=== PATIENT | female | born 1975 | race Caucasian/White ===

== ENCOUNTER 2020-03-06 16:46 | Inpatient (IN) | payer OTHER, SELFPAY ==
[2020-03-06] VITALS (9 sets, daily range): BP systolic 98–128; BP diastolic 60–91; PULSE 118–149; RESP 13–26; TEMP 36.3–37.6; O2SAT 94–100; BMI 36.6; BMI 78.2
--- NOTE | ~2020-03-06 | US_ITS ---
EXAMINATION: US retroperitoneal comp DATE: 03/07/2020 16:15 INDICATION: Gross hematuria TECHNIQUE: Multiple ultrasound grayscale images of the kidneys were obtained. COMPARISON: CT dated 03/06/2020 FINDINGS: The right kidney measures 12.2 x 5.0 x 4.7 cm. The left kidney measures 12.6 x 6.2 x 5.9 cm. The kidn eys demonstrate normal echogenicity. There are a pair of 5 mm shadowing stones at the upper and lower poles of the right kidney. No stones identified at the left kidney. Linear echogenic internal ureter al stent is visualized in the bladder and in the left renal pelvis. There is no hydronephrosis in eit her kidney. No stones identified. The bladder is normal. IMPRESSION: 1. Resolution of prior left hydronephrosis post left internal ureteral stent placement. 2. A couple nonobstructing 5 mm right renal stones. Reviewed, dictated and finalized at location B. IMPRESSION: 1. Resolution of prior left hydronephrosis post left internal ureteral stent p lacement. 2. A couple nonobstructing 5 mm right renal stones.
--- NOTE | ~2020-03-06 | CT_ITS ---
EXAMINATION: CT abdomen pelvis w con DATE: 03/06/2020 18:48 INDICATION: Left lower quadrant abdominal pain TECHNIQUE: Computed tomography (CT) of the abdomen and pelvis was performed with 100 cc Omnipaque 350 intravenous contrast. Automated exposure control and iterative reconstruction technique were employe d. Exam dose: 1050.78 mGy-cm total exam DLP. COMPARISON: 03/31/2019 CTA chest abdomen FINDINGS: There is mild by basilar lower lobe dependent atelectasis. There is old pulmonary granuloma tous disease. Normal heart size. No pericardial or pleural effusion. Small sliding hiatal hernia. There is a 2 cm hypoattenuating mass of the right hepatic lobe. There is air within the gallbladder lumen and extrahepatic bile ducts. No bile duct dilatation. No pa ncreatic duct dilatation. Normal splenic size. No pancreatic mass lesion or calcification. Normal morphology of the adrenal glands. There are multiple right renal cysts, measuring 9 mm or smaller. Indeterminate 9 mm hypoattenuating lesion of the lateral mid left kidney. 5 mm, 5 mm and 4.7 mm right renal nonobstructing calculi. 3.2 mm nonobstructing upper pole left renal calculus. 7.8 x 4.2 x 9.5 mm obstructing left ureteropelvic junction calculus with moderate left hydronephrosis . The urinary bladder, uterus and adnexal areas are unremarkable. No bowel obstruction, bowel wall thickening, pneumatosis or intraperitoneal free air. Normal caliber of the abdominal aorta. No intraperitoneal or retroperitoneal or pelvic mass lesion or adenopathy or ascites. Small fat-containing umbilical hernia. No suspicious osteolytic or osteoblastic lesions. IMPRESSION: 7.8 x 4.2 x 9.5 mm obstructing left ureteral interval junction calculus with moderate le ft hydronephrosis Bilateral nonobstructive nephrolithiasis Multiple subcentimeter right renal cysts Indeterminate hypoattenuating 9 mm lesion of lateral mid left kidney. Indeterminate 2 cm lesion of right hepatic lobe. Consider MRI for further evaluation of the right hep atic and left renal masses. Small sliding hiatal hernia Pneumobilia Reviewed, dictated and finalized at Location [facility]. Reviewed, dictated and finalized at location A. IMPRESSION: 7.8 x 4.2 x 9.5 mm obstructing left ureteral interval junction dionisio culus with moderate left hydronephrosis Bilateral nonobstructive nephrolithiasis Multiple subcentimeter right renal cysts Indeterminate hypoattenuating 9 mm lesion of lateral mid left kidney. Indeterminate 2 cm lesion of right hepatic lobe. Consider MRI for further evalu ation of the right hepatic and left renal masses. Small sliding hiatal hernia Pneumobilia
--- NOTE | ~2020-03-06 | MR_ITS ---
EXAMINATION: MR abdomen wo/w con INDICATION: Right hepatic and left renal masses TECHNIQUE: Coronal SSFSE ARC, WATER:coronal LAVA-FLEX, Coronal 2D FIESTA FatSat, Axial SSFSE BH ARC, Axial 3D DualEcho BH, Axial SSFSE-IR, Axial DWI b=500, Axial 2D FIESTA FatSat, pre and dynamic postco ntrast Axial LAVA ARC, postcontrast Coronal In and Opposed phase LAVA FLEX COMPARISON: 03/31/2019 CONTRAST: Multihance, 20 cc FINDINGS: There is a stable 2.1 cm hemangioma of the right hepatic lobe corresponding to the lesion q uestioned on recent CT examination. No suspicious liver lesion is identified. The gallbladder, spleen , gallbladder, and adrenal glands are normal. A stable 4 mm cyst is present in the tail of the pancre as. There are cysts of the kidneys, one of which measures 9 mm on the left and corresponds to the les ion in question on the comparison CT. There are no pathologically enlarged abdominal lymph nodes. No dilated loops of bowel are evident. There is mild atelectasis of the lung bases. The heart size is no rmal. IMPRESSION: 1. Liver hemangioma and left kidney cysts corresponding to the lesions in question on recent CT. Reviewed, dictated and finalized at location A. IMPRESSION: 1. Liver hemangioma and left kidney cysts corresponding to the lesions in quest ion on recent CT.
--- NOTE | ~2020-03-06 | XR_ITS ---
XR retrograde pyelo w/stent LT DATE: 03/06/2020 21:42 INDICATION: Kidney stone. Left stent placement. TECHNIQUE: 9 spot C-arm images of the abdomen and pelvic areas 32.2 seconds fluoroscopy time [id number] [id number] COMPARISON: 03/06/2020 CT abdomen pelvis FINDINGS: The left ureter is opacified with contrast material. A guidewire and especially catheter pl aced on a faintly calcified stone of the left ureteropelvic junction. Left internal urinary stent is placed. Recommend reference to urologist procedure report. IMPRESSION: Left internal urinary stent placement for left ureteropelvic junction calcified stone Reviewed, dictated and finalized at Location [facility]. Reviewed, dictated and finalized at location A. IMPRESSION: Left internal urinary stent placement for left ureteropelvic juncti on calcified stone
--- NOTE | 2020-03-06 17:07 | ED.ABDPAIN ---
HPI - Abdominal Pain General Chief Complaint: Abdominal Pain Stated Complaint: pancreatitis Time Seen by Provider: 03/06/20 16:55 History of Present Illness HPI narrative: Severe abdominal pain for the past few days. Worsening in severity. Located in the Left mid abdomen. Radiates throughout the abdomen. Asscoiated with nausea. She has a h/o pacreatitis and believes that is what she has now. No fever, chills, diarrhea, dysuria. Related Data Allergies Allergy/AdvReac Type Severity Reaction Status Date / Time sumatriptan Allergy Mild Agitated Verified 03/06/20 17:02 SUMATRIPTAN SUCCINATE Allergy Severe DIFFICULTY Uncoded 03/06/20 17:02 BREATHING Review of Systems Review of Systems: All systems reviewed & are unremarkable except as noted in HPI and below Constitutional: Constitutional: Denies fever(s) and Denies weakness Cardiovascular: Cardiovascular: Denies chest pain Respiratory: Respiratory: Denies dyspnea Gastrointestinal: Gastrointestinal: Reports abdominal pain and Reports nausea Genitourinary: Genitourinary: Denies hematuria and Denies dysuria Musculoskeletal: Musculoskeletal: Denies back pain [facility] Past Medical History Medical History Migraine Pancreatitis Surgical History Surgical History History of pancreatic surgery Family History Family History Father COPD (chronic obstructive pulmonary disease) Asthma Cerebrovascular accident Diabetes mellitus Hypertension Malignant neoplasm of prostate Mother MVP (mitral valve prolapse) Social History Social History Smoking status: Never smoker Second hand tobacco smoke exposure: No Alcohol intake: current Substance use: never Substance use type: does not use Gender identity (if verbalized by the patient): Female Spiritual care concerns: No Exam Const: General: alert and ill appearing acutely Orientation/consciousness: patient oriented x3 Other: Mild distress HENMT: Head: normal to inspection Neck: Neck: normal visual inspection and no lymphadenopathy Chest: Chest palpation & inspection: no tenderness Resp: Effort & Inspection: normal respiratory effort Auscultation: clear to auscultation bilaterally, no rales, no rhonchi and no wheezes Cardio: Jugular venous distension: no JVD Rate: tachycardic Rhythm: regular rhythm Heart sounds: no murmurs GI: Inspection: non-distended GI Palp: Yes Soft to palpation, Yes Tenderness to palpation present (GI) (generalized), No Guarding due to palpation present (GI) and No Rebound tenderness present Skin: General skin exam: normal color Neuro: General: patient oriented x3, moves all extremities and no focal motor deficits Speech: normal speech Extrem: General: no edema Psych: Appearance: well kempt Affect: normal affect Course Vital Signs Vital signs: Vital Signs Temperature 36.9 C 03/06/20 16:58 Pulse Rate 149 H 03/06/20 16:58 Respiratory Rate 23 H 03/06/20 16:58 Blood Pressure 112/66 03/06/20 16:58 Pulse Oximetry 98 03/06/20 16:58 Temperature 36.6 C 03/10/20 10:00 Pulse Rate 90 03/10/20 10:00 Respiratory Rate 16 03/10/20 10:00 Blood Pressure 128/85 03/10/20 10:00 Pulse Oximetry 99 03/10/20 10:00 MDM - Abdominal Pain Differential Diagnosis Differential diagnosis: Likely constipation, diverticulitis, pancreatitis, small bowel obstruction and other (sepsis) Medical Records Attestation: I reviewed the patient's medical records. Lab Data Attestation: I reviewed the patient's lab results. Result diagrams: 03/08/20 05:25 03/08/20 05:25 Labs: Lab Results 03/06/20 03/06/20 03/06/20 Range/Units 17:05 17:05 17:30 WBC 10.6 H (4.5-10.0) K/mm3 RBC 4.60 (4.2-5.4) M/mm3
[2020-03-06 17:38] LABS: Basophils Percent Auto 0.3 % (0.2-1.2); Eosinophils Percent Auto 0.1 % (0-4.4); Hematocrit 40.2 % (37.0-47.0); Hemoglobin 13.3 g/dL (12.0-15.0); Immature Granulocyte Absolute 0.04 K/mm3 (0.00-0.031); Immature Granulocyte Percent A 0.4 % (0-0.5); Lymphocytes Absolute Auto 0.22 K/mm3 (0.9-3.2); Lymphocytes Percent Auto 2.1 % (18.3-44.2); Mean Corpuscular HGB Conc 33.1 g/dl (32-36); Mean Corpuscular Hemoglobin 28.9 pg (26-34); Mean Corpuscular Volume 87.4 fl (80-100); Mean Platelet Volume 12.3 fl (7.4-10.4); Monocytes Absolute Auto 0.3 K/mm3 (0.1-0.6); Monocytes Percent Auto 2.4 % (2.6-8.5); Neutrophils Percent Auto 94.7 % (45.5-73.1); Platelet Count Result 216 k/mm3 (150-375); White Blood Count 10.6 K/mm3 (4.5-10.0)
[2020-03-06 17:45] LABS: Add Urine Microscopic? YES; Appearance Urine Cloudy (Clear); Bacteria Urine 1+ /hpf; Bilirubin Urine Negative (Negative); Blood Urine 1+ (Negative); Color Urine Yellow (Yellow); Glucose Urine UA Negative (Negative); Ketones Urine Trace mg/dL (Negative); Leukocyte Esterase Ur 2+ LEU/UL (Negative); Mucus Urine Rare /lpf; Nitrate Urine Positive (Negative); Protein Urine 1+ mg/dL (Negative); Specific Grav Ur 1.018 (1.001-1.035); Squamous Epithelial Cell Urine Many /hpf (Few); Urobilinogen Urine Negative mg/dL (<2.0); WBC Urine 51-75 /hpf
[2020-03-06] MEDS: SODIUM CHLORIDE 0.9% IV 1,000 ML 999 ML IV CONT (18:12)
[2020-03-06] MEDS: ONDANSETRON INJ 4 MG/2 ML VIAL IV PUSH (18:14)
[2020-03-06 18:24] LABS: Alanine Aminotransferase 22 U/L (4-35); Albumin Level 4.2 g/dL (3.5-5.1); Alkaline Phosphatase 98 U/L (38-126); Anion Gap 9 mmol/L (8-16); Aspartate Amino Transferase 20 U/L (14-36); Bilirubin,Total 1.5 mg/dL (0.2-1.3); Blood Urea Nitrogen 17 mg/dL (7-17); Calcium 8.8 mg/dL (8.4-10.2); Carbon Dioxide 21 mmol/L (22-30); Chloride 105 mmol/L (98-107); Estimated CRCL calculation 74 ml/min; Estimated Glomerular Filt Rate > 60; Glucose 123 mg/dL (65-105); Lipase 36 U/L (23-300); Potassium 3.8 mmol/L (3.4-5.0); Sodium 135 mmol/L (137-145)
[2020-03-06] MEDS: KETOROLAC 30 MG/ML VIAL (*BKC) IV PUSH (18:39)
[2020-03-06 19:42] LABS: Lactic Acid Reflex 0.9 mmol/L (0.7-2.1)
--- NOTE | 2020-03-06 20:33 | WPDANESEPPF ---
Anes - Initial Pre Proc Eval Procedure: cysto with stent placement Date/Time: 03/06/20 20:33 Surgeon: Terry Pre Op Diagnosis: renal stone Pre Op Diagnosis: Left ureteral stone, UTI, sepsis Patient Data Age: 44 Gender: F Height: 1.63 m Weight: 100 kg Last Vital Signs Temp 36.9 C 03/06/20 16:58 Pulse 149 H 03/06/20 16:58 Resp 23 H 03/06/20 16:58 BP 112/66 03/06/20 16:58 Pulse Ox 98 03/06/20 16:58 Allergies Allergy/AdvReac Type Severity Reaction Status Date / Time sumatriptan Allergy Mild Agitated Verified 03/06/20 17:02 SUMATRIPTAN SUCCINATE Allergy Severe DIFFICULTY Uncoded 03/06/20 17:02 BREATHING Home Medications Medication Instructions Recorded Confirmed Type tramadol 50 mg tablet 50 mg PO Q6H PRN #30 tablet 03/06/20 03/06/20 Rx Laboratory Tests 03/06/20 03/06/20 03/06/20 17:05 17:05 17:30 WBC 10.6 K/mm3 H K/mm3 (4.5-10.0) RBC 4.60 M/mm3 M/mm3 (4.2-5.4) Hgb 13.3 g/dL g/dL (12.0-15.0) Hct 40.2 % % (37.0-47.0) MCV 87.4 fl fl (80-100) MCH 28.9 pg pg (26-34) MCHC 33.1 g/dl g/dl (32-36) RDW 13.0 % % (11.5-14.5) Plt Count 216 k/mm3 k/mm3 (150-375) MPV 12.3 fl H fl (7.4-10.4) Immature Gran % (Auto) 0.4 % % (0-0.5) Neut % (Auto) 94.7 % H % (45.5-73.1) Lymph % (Auto) 2.1 % L % (18.3-44.2) [place] % (Auto) 2.4 % L % (2.6-8.5) Eos % (Auto) 0.1 % % (0-4.4) Baso % (Auto) 0.3 % % (0.2-1.2) Lymph # (Auto) 0.22 K/mm3 L K/mm3 (0.9-3.2) [place] # (Auto) 0.3 K/mm3 K/mm3 (0.1-0.6) Eos # (Auto) 0.0 K/mm3 K/mm3 (0-0.3) Baso # (Auto) 0.0 K/mm3 K/mm3 (0.0-0.1) Abs Immat Gran (auto) 0.04 K/mm3 H K/mm3 (0.00-0.031) Absolute Neuts (auto) 10.0 K/mm3 H K/mm3 (1.3-6.7) Absolute Nucleated RBC 0.0 K/mm3 K/mm3 (0.0-0.012) Nucleated RBC % 0.0 % % (0.0-0.2) Sodium 135 mmol/L L mmol/L (137-145) Potassium 3.8 mmol/L mmol/L (3.4-5.0) Chloride 105 mmol/L mmol/L (98-107) Carbon Dioxide 21 mmol/L L mmol/L (22-30) Anion Gap 9 mmol/L mmol/L (8-16) BUN 17 mg/dL mg/dL (7-17) Creatinine 1.00 mg/dL mg/dL (0.7-1.0) Estim Creat Clear Calc 74 ml/min ml/min Estimated GFR > 60 (59 - ) Glucose 123 mg/dL H mg/dL (65-105) Lactic Acid Calcium 8.8 mg/dL mg/dL (8.4-10.2) Total Bilirubin 1.5 mg/dL H mg/dL (0.2-1.3) AST 20 U/L U/L (14-36) ALT 22 U/L U/L (4-35) Alkaline Phosphatase 98 U/L U/L (38-126) Total Protein 7.0 g/dL g/dL (6.3-8.2) Albumin 4.2 g/dL g/dL (3.5-5.1) Lipase 36 U/L U/L (23-300) Urine Color Yellow (Yellow) Urine Appearance Cloudy H (Clear) Urine pH 5.0 (5.0-9.0) Ur Specific Central 1.018 (1.001-1.035) Urine Protein 1+ mg/dL H mg/dL (Negative) Urine Glucose (UA) Negative mg/dL mg/dL (Negative) Urine Ketones Trace mg/dL mg/dL (Negative) Ur Blood (Man) 1+ H (Negative) Urine Nitrate Positive H (Negative) Urine Bilirubin Negative (Negative) Urine Urobilinogen Negative mg/dL mg/dL (<2.0) Leukocyte Esterase Rfl 2+ CAMPBELL/UL H CAMPBELL/UL (Negative) Urine RBC 6-10 /hpf H /hpf (0-2) Urine WBC 51-75 /hpf H /hpf Ur Squamous Epith Cells Many /hpf H /hpf (Few) Urine Bacteria 1+ /hpf H /hpf Urine Mucus Rare /lpf /lpf 03/06/20 19:16 WBC RBC Hgb Hct MCV MCH MCHC RDW Plt Count MPV Immature Gran % (Auto) Neut % (Auto) Lymph % (Auto) [place] % (Auto)
--- NOTE | 2020-03-06 21:11 | WPDURCON ---
Assessment and Plan Assessment and plan (1) Ureteral stone: Code(s): N20.1 - Calculus of ureter Status: Acute Assessment and Plan: she will be taken to the operating room tonight for cystoscopy with left ureteral stent. She understands will not be removing the stone. She understands risks of bleeding, infection, damage to the urinary tract. She understands she will need a procedure in the future for her stone once the acute situation resolves. She agrees to proceed (2) Hydronephrosis: Code(s): N13.30 - Unspecified hydronephrosis Status: Acute Assessment and Plan: due to ureteral stone (3) Abnormal urinalysis: Code(s): R82.90 - Unspecified abnormal findings in urine Status: Acute Assessment and Plan: will be admitted to Medicine postoperative for broad-spectrum antibiotics. Urine culture is pending. Can transition to p.o. antibiotics once culture has returned Urology Consult Note HPI Date Seen: 03/06/20 Requesting Physician: Mundo Ramirez MD Primary Care Provider: Eulalia Kuo MD Consult Narrative Narrative: Clair Moreno is a 44 year old female With a prior history of pancreatitis. She has been experiencing left-sided abdominal pain for the last 36-48 hours. She thought this was may be recurrence of her pancreatitis. She got to the point where she could not take it anymore and she presented to the emergency room [facility]. A CT scan revealed a 1 cm proximal left ureteral stone. She has hydronephrosis and delayed nephrogram. Her urinalysis is positive for white cells and nitrate and she meets sepsis criteria based on tachycardia. She has no prior history of stones. She denies any visible blood in the urine. She endorses chills but denies any fevers. She be taken to the operating room tonight for left ureteral stent. She will be admitted to the medicine service postoperatively for observation and treatment of possible urosepsis. Review of Systems Review of Systems: All systems reviewed & are unremarkable except as noted in HPI and below Constitutional: Constitutional: Reports fatigue Respiratory: Respiratory: Reports no additional respiratory complaints [facility] Social History Social History (Reviewed 03/06/20 @ 12:08 by Guadalupe Chadwick [facility]) Smoking status: Never smoker Second hand tobacco smoke exposure: No Alcohol intake: current Gender identity (if verbalized by the patient): Female Comments She works in [employer] for [employer] Meds Home Medications and Allergies Home Medications Medication Instructions Recorded Confirmed Type tramadol 50 mg tablet 50 mg PO Q6H PRN #30 tablet 03/06/20 03/06/20 Rx Allergies Allergy/AdvReac Type Severity Reaction Status Date / Time sumatriptan Allergy Mild Agitated Verified 03/06/20 17:02 SUMATRIPTAN SUCCINATE Allergy Severe DIFFICULTY Uncoded 03/06/20 17:02 BREATHING Vital Signs Vital Signs - 24 hr 03/06/20 16:58 03/06/20 21:05 Temperature 98.5 F Pulse Rate 149 H 129 H Respiratory Rate 23 H 26 H Blood Pressure 112/66 128/89 Pulse Oximetry 98 98 Exam Const: General: in distress and uncomfortable Other: she is ill appearing and slightly diaphoretic. She also appears quite nauseated HENMT: Mouth: Yes moist mucous membranes abnormal Eyes: General: appearance normal, both eyes and all related structures Resp: Effort & Inspection: normal respiratory effort Cardio: Rate: tachycardic GI: Inspection: non-distended Skin: General skin exam: normal color Neuro: Speech: normal speech Motor exam (neuro): Normal motor muscle tone present throughout Extrem: General: normal to inspection Psych: Speech and movement: Normal speech and movement present Affect: normal affect Results Labs CBC & Chem 7: 03/06/20 17:05 03/06/20 17:05 Labs: Short CBC 03/06/20 Range/Units 17:05 WBC 10.
--- NOTE | 2020-03-06 21:16 | PM.IMHP ---
H&P: HPI History of Present Illness Date/Time: 03/06/20 21:16 Chief complaint: Left ureteral stone, UTI, sepsis Narrative: This is a pleasant 44 year old female who presented to the hospital [facility] with a complaint of left lower flank pain that radiates towards her back since Wednesday night. Initially she noticed that her abdominal discomfort worsened with food intake and she has a history of prevoius pancreatitis and believed that she was again having another bout of pancreatitis. She took pain medications and stayed at home until she woke up with chills, nausea, and vomiting today. She has no previous history of renal stones. She denies any dysuria or hematuria. She denies any chest pain, shortness of breath, fever, cough, rashes, or LE swelling. The patient was evaluated in the ER and found to be septic with tachycardia and tachypnea. CT abd/pelvis obtained in the ER demonstrated a 7.8 x 4.2 x 9.5 mm obstructing left ureteral interval junction calculus with moderate left hydronephrosis. Urology was consulted by ER provider and has asked that we admit the patient to the hospital and they will evaluate her. Review of Systems Review of Systems: All systems reviewed & are unremarkable except as noted in HPI and below PMFSH Past Medical History Medical History (Updated 03/07/20 @ 03:27 by Mundo Ramirez MD) Migraine Pancreatitis Surgical History Surgical History (Updated 03/07/20 @ 03:23 by Mundo Ramirez MD) History of pancreatic surgery Family History Family History Father Asthma COPD (chronic obstructive pulmonary disease) Other Cerebrovascular accident Diabetes mellitus Hypertension Malignant neoplasm of prostate Social History Social History Smoking status: Never smoker Second hand tobacco smoke exposure: No Alcohol intake: current Substance use: never Substance use type: does not use Gender identity (if verbalized by the patient): Female Spiritual care concerns: No Meds Home Medications and Allergies Home Medications Medication Instructions Recorded Confirmed Type tramadol 50 mg tablet 50 mg PO Q6H PRN #30 tablet 03/06/20 03/06/20 Rx Allergies Allergy/AdvReac Type Severity Reaction Status Date / Time sumatriptan Allergy Mild Agitated Verified 03/06/20 17:02 SUMATRIPTAN SUCCINATE Allergy Severe DIFFICULTY Uncoded 03/06/20 17:02 BREATHING Vital Signs Vital Signs - 24 hr 03/06/20 16:58 03/06/20 21:05 Temperature 36.9 C Pulse Rate 149 H 129 H Respiratory Rate 23 H 26 H Blood Pressure 112/66 128/89 Pulse Oximetry 98 98 Exam Const: General: cooperative, alert, awake, acute distress, ill appearing, tired appearing and uncomfortable Nutritional Appearance: well nourished Orientation/consciousness: patient oriented x3 HENMT: Head: normal to inspection General nose exam: Normal external nose present Face and sinus: normal facial exam Mouth: Yes Normal oral and palatal mucosa present and Yes oropharynx normal Eyes: Pupils: Equal, round and reactive pupils present EOM: EOMs intact bilaterally Neck: Neck: supple and no JVD Thyroid: thyroid normal Lymphatic: lymphadenopathy not noted Resp: Effort & Inspection: normal respiratory effort Auscultation: clear to auscultation bilaterally Cardio: Rate: tachycardic Rhythm: regular rhythm Heart sounds: no murmurs GI: Inspection: normal to inspection Auscultation: normal bowel sounds Back/Spine/Pelvis: Back: CVA tenderness (Left side+++ ) Skin: General skin exam: normal color and no rashes or lesions noted Neuro: General: patient oriented x3 Cranial nerves: Yes CN's II-XII intact bilaterally and Yes Equal, round and reactive pupils present Speech: normal speech Motor exam (neuro): 5/5 motor strength present throughout Sensory Exam: normal sensation Extrem: General: normal to inspect
[2020-03-06] MEDS: LIDOCAINE HCL 2% GEL UROJET 10 ML PKG MUCOUS MEM (21:20)
--- NOTE | 2020-03-06 21:37 | P.OP_ITS ---
Procedure Note - Detailed Date of procedure: 03/06/20 Pre-op diagnosis: Left ureteral stone, UTI, sepsis Post-op diagnosis: same Procedure performed: cystoscopy, left retrograde pyelogram, left ureteral stent placement Description of procedure: she was correctly identified and informed consent was obtained. She is brought the operating room. She was given general anesthesia. She was placed in dorsal lithotomy position. She was prepped and draped in sterile fashion. Time-out was performed. She was given antibiotics in the ER. Cystoscopy revealed a normal-appearing bladder. The stone was seen on project coordinator radiograph. I did a gentle retrograde pyelogram on the left. She had a delicate ureter. She had a stone in the proximal ureter with proximal hydronephrosis. A guidewire was placed in the kidney. Next a 4.8 variable length stent was placed. Proximal coil in the renal pelvis. Distal coil bladder. Her bladder is drained. She was awakened and transferred to the PACU in stable condition. Implants: Ureteral stent Anesthesia: GET Surgeon: Kale Stewart MD Estimated blood loss (mL): 0 Drains: No Packing: No Pathology: none sent Complications: No immediate complications Condition: stable Disposition: PACU
[2020-03-06] MEDS: LACTATED RINGERS 1,000 ML 30 ML IV CONT (21:40)
--- NOTE | 2020-03-06 23:01 | ADMGEN ---
This patient, Clair Moreno, was admitted to IMU Room 200-01 at 2236. Patient/family oriented to hospital policies and general routines including ID bracelet, bed and alarms, visiting hours, pain management, procedures, bathroom and other care routines, personal items, smoking policy, room service/diet, and visiting hours. Valuables list has been completed. Information on how to activate the Rapid Response Team has been discussed. Patient/Family are encouraged to report perceived risks to care and to ask questions if they do not understand what they are told or what they should do.
[2020-03-07] VITALS (15 sets, daily range): BP systolic 96–122; BP diastolic 52–74; PULSE 88–118; RESP 12–20; TEMP 35.8–36.6; O2SAT 95–98
[2020-03-07] MEDS: LACTATED RINGERS 1,000 ML 125 ML IV CONT ×2 (01:38→09:22)
[2020-03-07 04:39] LABS: Basophils Percent Auto 0.1 % (0.2-1.2); Hematocrit 35.3 % (37.0-47.0); Hemoglobin 11.5 g/dL (12.0-15.0); Immature Granulocyte Absolute 0.37 K/mm3 (0.00-0.031); Immature Granulocyte Percent A 1.9 % (0-0.5); Lymphocytes Absolute Auto 0.14 K/mm3 (0.9-3.2); Lymphocytes Percent Auto 0.7 % (18.3-44.2); Mean Corpuscular HGB Conc 32.6 g/dl (32-36); Mean Corpuscular Hemoglobin 28.8 pg (26-34); Mean Corpuscular Volume 88.5 fl (80-100); Mean Platelet Volume 12.1 fl (7.4-10.4); Monocytes Absolute Auto 0.9 K/mm3 (0.1-0.6); Monocytes Percent Auto 4.6 % (2.6-8.5); Neutrophils Absolute Auto 17.6 K/mm3 (1.3-6.7); Neutrophils Percent Auto 92.7 % (45.5-73.1); Platelet Count Result 202 k/mm3 (150-375); Red Blood Count 3.99 M/mm3 (4.2-5.4)
[2020-03-07 04:51] LABS: Potassium 4.2 mmol/L (3.4-5.0)
[2020-03-07 04:55] LABS: Anion Gap 7 mmol/L (8-16); Blood Urea Nitrogen 15 mg/dL (7-17); Carbon Dioxide 23 mmol/L (22-30); Chloride 107 mmol/L (98-107); Estimated CRCL calculation 62 ml/min; Estimated Glomerular Filt Rate 45; Glucose 145 mg/dL (65-105); Sodium 137 mmol/L (137-145)
--- NOTE | 2020-03-07 07:36 | WPDANESPN ---
Anes - Prog Note Post-Op Date/Time: 03/07/20 07:36 Cardiovascular status: normal Respiratory status: normal Airway patency: baseline Mental status: baseline Post-Op hydration status: normal Vital Signs: Last Vital Signs Temp 36.2 C L 03/07/20 04:00 Pulse 95 03/07/20 06:00 Resp 20 03/07/20 04:00 BP 97/58 L 03/07/20 04:00 Pulse Ox 96 03/07/20 04:00 I/O: Intake & Output 03/06/20 03/06/20 03/07/20 15:59 23:59 07:59 Intake Total 1150 200 Output Total 400 Balance 1150 -200 Laboratory Tests 03/07/20 04:16 03/07/20 04:16 03/06/20 03/06/20 03/06/20 17:05 17:05 17:30 WBC 10.6 H RBC 4.60 Hgb 13.3 Hct 40.2 MCV 87.4 MCH 28.9 MCHC 33.1 RDW 13.0 Plt Count 216 MPV 12.3 H Immature Gran % (Auto) 0.4 Neut % (Auto) 94.7 H Lymph % (Auto) 2.1 L [place] % (Auto) 2.4 L Eos % (Auto) 0.1 Baso % (Auto) 0.3 Lymph # (Auto) 0.22 L [place] # (Auto) 0.3 Eos # (Auto) 0.0 Baso # (Auto) 0.0 Abs Immat Gran (auto) 0.04 H Absolute Neuts (auto) 10.0 H Absolute Nucleated RBC 0.0 Nucleated RBC % 0.0 Sodium 135 L Potassium 3.8 Chloride 105 Carbon Dioxide 21 L Anion Gap 9 BUN 17 Creatinine 1.00 Estim Creat Clear Calc 74 Estimated GFR > 60 Glucose 123 H Lactic Acid Calcium 8.8 Total Bilirubin 1.5 H AST 20 ALT 22 Alkaline Phosphatase 98 Total Protein 7.0 Albumin 4.2 Lipase 36 Urine Color Yellow Urine Appearance Cloudy H Urine pH 5.0 Ur Specific [place] 1.018 Urine Protein 1+ H Urine Glucose (UA) Negative Urine Ketones Trace Ur Blood (Man) 1+ H Urine Nitrate Positive H Urine Bilirubin Negative Urine Urobilinogen Negative Leukocyte Esterase Rfl 2+ H Urine RBC 6-10 H Urine WBC 51-75 H Ur Squamous Epith Cells Many H Urine Bacteria 1+ H Urine Mucus Rare 03/06/20 03/07/20 03/07/20 19:16 04:16 04:16 WBC 19.0 H RBC 3.99 L Hgb 11.5 L Hct 35.3 L MCV 88.5 MCH 28.8 MCHC 32.6 RDW 13.0 Plt Count 202 MPV 12.1 H Immature Gran % (Auto) 1.9 H Neut % (Auto) 92.7 H Lymph % (Auto) 0.7 L [place] % (Auto) 4.6 Eos % (Auto) 0.0 Baso % (Auto) 0.1 L Lymph # (Auto) 0.14 L [place] # (Auto) 0.9 H Eos # (Auto) 0.0 Baso # (Auto) 0.0 Abs Immat Gran (auto) 0.37 H Absolute Neuts (auto) 17.6 H Absolute Nucleated RBC 0.0 Nucleated RBC % 0.0 Sodium 137 Potassium 4.2 Chloride 107 Carbon Dioxide 23 Anion Gap 7 L BUN 15 Creatinine 1.30 H Estim Creat Clear Calc 62 Estimated GFR 45 L Glucose 145 H Lactic Acid 0.9 Calcium 8.0 L Total Bilirubin AST ALT Alkaline Phosphatase Total Protein Albumin Lipase Urine Color Urine Appearance Urine pH Ur Specific [place] Urine Protein Urine Glucose (UA) Urine Ketones Ur Blood (Man) Urine Nitrate Urine Bilirubin Urine Urobilinogen Leukocyte Esterase Rfl Urine RBC Urine WBC Ur Squamous Epith Cells Urine Bacteria Urine Mucus Post-procedural complaints: none Patient Feedback: Patient satisfied with anesthetic care.
[2020-03-07] MEDS: OXYBUTYNIN CHLORIDE 5 MG TABLET PO ×3 (08:30→16:44)
[2020-03-07] MEDS: PHENAZOPYRIDINE HCL 100 MG TABLET 200 MG PO ×3 (08:30→16:44)
--- NOTE | 2020-03-07 10:31 | WPDUROPN2 ---
Progress Note: A&P Assessment and Plan (1) Ureteral stone: Code(s): N20.1 - Calculus of ureter Status: Acute Assessment and Plan: Will plan to schedule Left ESWL in a few weeks once infection resolves, then stent removal following ESWL in the office. Patient is tolerating the stent very well and is having minimal to no pain. (2) Sepsis: Code(s): A41.9 - Sepsis, unspecified organism Status: Acute Assessment and Plan: Continue IV Ceftriaxone, will tailor antibiotics to culture results and discharge home once stable on appropriate oral antibiotics. Will re-culture urine in office next week for follow up, prior to ESWL. NO further evaluation necessary at this time. Subjective Subjective Date/Time Seen: 03/07/20 10:31 POD#1 Cystoscopy, left ureteroscopy with retrograde pyelogram and left stent placement. Patient doing much better today, minimal to no pain, tolerating stent and diet. Review of Systems Cardiovascular: Cardiovascular: Denies chest pain Respiratory: Respiratory: Reports no additional respiratory complaints Gastrointestinal: Gastrointestinal: Denies abdominal pain, Denies GI cramping, Denies nausea and Denies vomiting Genitourinary: Genitourinary: Denies hematuria, Denies dysuria, Denies pelvic pain, Denies flank pain and Denies urinary urgency Exam Resp: Effort & Inspection: normal respiratory effort Cardio: Rate: tachycardic GI: GI Palp: Yes Soft to palpation and Yes Tenderness to palpation present (GI) (LLQ) : General: Yes CVA tenderness on the left Extrem: General: no edema Objective Data Vital Signs Vital Signs: Vital Signs - 24 hr 03/06/20 16:58 03/06/20 21:05 03/06/20 21:40 Temperature 98.5 F 98.4 F Pulse Rate 149 H 129 H 140 H Respiratory Rate 23 H 26 H 13 Blood Pressure 112/66 128/89 115/91 H Pulse Oximetry 98 98 100 03/06/20 21:55 03/06/20 22:10 03/06/20 22:25 Temperature 99.6 F Pulse Rate 129 H 125 H 123 H Respiratory Rate 20 21 H 20 Blood Pressure 114/76 104/70 98/68 L Pulse Oximetry 100 95 95 03/06/20 22:36 03/06/20 23:00 03/06/20 23:30 Temperature 97.3 F L 97.5 F L 97.4 F L Pulse Rate 121 H 123 H 118 H Respiratory Rate 18 18 16 Blood Pressure 104/64 110/64 110/60 Pulse Oximetry 95 94 94 03/07/20 00:00 03/07/20 01:00 03/07/20 02:00 Temperature 96.9 F L 96.5 F L Pulse Rate 118 H 116 H 106 H Respiratory Rate 18 20 Blood Pressure 101/55 L 104/61 Pulse Oximetry 95 96 03/07/20 04:00 03/07/20 06:00 03/07/20 08:00 Temperature 97.2 F L 98 F Pulse Rate 116 H 95 95 Respiratory Rate 20 12 Blood Pressure 97/58 L 96/61 L Pulse Oximetry 96 97 03/07/20 08:18 03/07/20 10:00 Temperature Pulse Rate 95 96 Respiratory Rate Blood Pressure Pulse Oximetry Intake/Output Intake/Output: Intake & Output 03/04/20 03/05/20 03/06/20 03/07/20 23:59 23:59 23:59 23:59 Intake Total 1150 1440 Output Total 400 Balance 1150 1040 Meds/Results Medications: Active Medications Generic Name Dose Route Start Last Admin Trade Name Freq PRN Reason Stop Dose Admin Hydrocodone Bitart/Acetaminophen 1 tab 03/06/20 22:29 [place] 5-325 Mg PO Q4H PRN Pain Rated 4-6 Lactated Ringer's 1,000 mls @ 125 mls/hr 03/06/20 19:40 03/07/20 09:22 Lr - Lactated Ringers Iv IV CONT 125 mls/hr .Q8H BUZZ Administration Ceftriaxone Sodium/Dextrose 1 gm in 50 mls @ 100 mls/hr 03/07/20 18:00 Rocephin 1 Gm/D5w 50 Ml IVPB Q24H BUZZ Morphine Sulfate 4 mg 03/06/20 19:40 Morphine Sulfate Inj IV PUSH Q2H PRN Pain Rated 7-10 Ondansetron HCl 4 mg 03/06/20 19:40 Zofran Inj IV PUSH Q4H PRN Nausea Oxybutynin Chloride 5 mg 03/07/20 09:00 03/07/20 08:30 Ditropan PO 5 mg TID BUZZ Administration Phenazopyridine HCl 200 mg 03/07/20 08:00 03/07/20 08:30 Pyridium PO 200 mg TIDWM BUZZ Administration Radiology Results: ITS Impressions Abdomen/Pel
--- NOTE | 2020-03-07 15:45 | PM.IMPN ---
Progress Note: A&P Assessment and Plan (1) Septicemia: Code(s): A41.9 - Sepsis, unspecified organism Status: Acute Assessment and Plan: Sepsis present on admission with tachycardia and tachypnea. WBC 10.6 on admission but now 19. Called and informed that BCx positive for gram negative bacillus. Clinically much improved so suspect more elevated WBC just lagging behind. No recent hospitalization, no recent UTI and no recent abx exposure. Will continue Rocephin for now. (2) Ureteral stone: Code(s): N20.1 - Calculus of ureter Status: Acute Assessment and Plan: CT scan showing a 7.8 x 4.2 x 9.5 mm obstructing left ureteral interval junction calculus with moderate left hydronephrosis. She also has bilateral nonobstructive nephrolithiasis and multiple subcentimeter right renal cysts. (3) Hydronephrosis: Qualifiers: Hydronephrosis type: with ureteral calculous obstruction Qualified Code(s): N13.2 - Hydronephrosis with renal and ureteral calculous obstruction Code(s): N13.30 - Unspecified hydronephrosis Status: Acute Assessment and Plan: Secondary to ureteral stone. As above. Appreciate Urology input. (4) UTI (urinary tract infection): Qualifiers: Hematuria presence: with hematuria Urinary tract infection type: acute cystitis Qualified Code(s): N30.01 - Acute cystitis with hematuria Code(s): N39.0 - Urinary tract infection, site not specified Status: Acute Assessment and Plan: UA noted. Probably UTI but many squamous cells.. BCx positive. UCx pending. WBC higher but clinically feels much better. Continue current IV abx. Continue to monitor (5) Liver lesion: Code(s): K76.9 - Liver disease, unspecified Status: Acute Assessment and Plan: CT scan as above but also showing an indeterminate 2 cm lesion of right hepatic lobe and pneumobilia. MRI for further evaluation of the right hepatic and left renal masses either during this hospitalization or as outpatient. (6) Kidney mass: Code(s): N28.89 - Other specified disorders of kidney and ureter Status: Acute Assessment and Plan: CT scan on admission as above but also showing multiple subcentimeter right renal cysts and an indeterminate hypoattenuating 9mm lesion of lateral mid left kidney. Check MRI here or as outpatient. (7) Hyperglycemia: Code(s): R73.9 - Hyperglycemia, unspecified Status: Acute Assessment and Plan: Glucose noted. Probably stress response. Bill check A1c. (8) DVT prophylaxis: Code(s): Z29.9 - Encounter for prophylactic measures, unspecified Status: Acute Assessment and Plan: Lovenox Subjective Date/time seen: 03/07/20 15:45 Interval history: 44yo female here for abdominal pain and found to have obstructing ureteral stone, UTI and septicemia. Ureteral stent placed yesterday. She feels much better today. Some abd wall tenderness. Mild heavy feeling in the left back with voiding. no dysuria or hematuria. FmHx of DM in her paternal GF. No polyuria, polydipsia or wt loss. Eating normally Exam Narrative: Exam Narrative: AF 98.0 99/56 103 12 98% ra Gen - NARD Chest - CTA bilaterally, nml RR CV - RRR S1/S2; Tele showing occas sinus tach but this has resolved. Abd - Soft, NT/ND, Positive BS Back - mild left CVA tenderness Ext - No pedal edema Neuro - Alert and oriented. Nonfocal exam. Psych - Nml mood and affect Skin - Warm and dry Objective Data Vital Signs Vital Signs: Vital Signs - 24 hr 03/06/20 16:58 03/06/20 21:05 03/06/20 21:40 Temperature 98.5 F 98.4 F Pulse Rate 149 H 129 H 140 H Respiratory Rate 23 H 26 H 13 Blood Pressure 112/66 128/89 115/91 H Pulse Oximetry 98 98 100 03/06/20 21:55 03/06/20 22:10 03/06/20 22:25 Temperature 99.6 F Pulse Rate 129 H 125 H 123 H Respiratory Rate 20 21 H 20 Blood Pressure 1
[2020-03-07] MEDS: ENOXAPARIN 40 MG/0.4 ML SYRINGE SUB-Q (16:44)
--- NOTE | 2020-03-07 21:27 | PC.NURSE ---
received transfer from [facility] at 2109.
[2020-03-08] VITALS: BP 124/68; PULSE 102; RESP 16; TEMP 36.6; O2SAT 95
[2020-03-08 03:44] VITALS: BP 117/56; PULSE 91; RESP 16; TEMP 36.6; O2SAT 91
[2020-03-08 05:32] LABS: Hematocrit 33.9 % (37.0-47.0); Mean Corpuscular HGB Conc 32.4 g/dl (32-36); Mean Corpuscular Hemoglobin 28.9 pg (26-34); Mean Corpuscular Volume 89.2 fl (80-100); Platelet Count Result 195 k/mm3 (150-375); Red Cell Distribution Width 13.2 % (11.5-14.5); White Blood Count 9.6 K/mm3 (4.5-10.0)
[2020-03-08 05:53] LABS: Hemoglobin A1C 5.1 % (<5.7)
[2020-03-08 05:59] LABS: Anion Gap 4 mmol/L (8-16); Blood Urea Nitrogen 15 mg/dL (7-17); Calcium 8.1 mg/dL (8.4-10.2); Carbon Dioxide 25 mmol/L (22-30); Chloride 108 mmol/L (98-107); Estimated CRCL calculation 79 ml/min; Estimated Glomerular Filt Rate > 60; Glucose 102 mg/dL (65-105); Potassium 3.7 mmol/L (3.4-5.0); Sodium 137 mmol/L (137-145)
[2020-03-08] MEDS: ONDANSETRON INJ 4 MG/2 ML VIAL IV PUSH ×3 (08:10→19:55)
[2020-03-08] MEDS: OXYBUTYNIN CHLORIDE 5 MG TABLET PO (08:15)
[2020-03-08] MEDS: ENOXAPARIN 40 MG/0.4 ML SYRINGE SUB-Q (08:15)
[2020-03-08] MEDS: PHENAZOPYRIDINE HCL 100 MG TABLET 200 MG PO (08:15)
--- NOTE | 2020-03-08 08:44 | WPDUROPN2 ---
Progress Note: A&P Assessment and Plan (1) UTI (urinary tract infection): Qualifiers: Urinary tract infection type: acute cystitis Hematuria presence: with hematuria Qualified Code(s): N30.01 - Acute cystitis with hematuria Code(s): N39.0 - Urinary tract infection, site not specified Status: Acute Assessment and Plan: Continue IV Ceftriaxone, sensitive on urine culture. Culture growing Klebsiella. Switch to appropriate oral antibiotics for discharge when patient is stable. (2) Ureteral stone: Code(s): N20.1 - Calculus of ureter Status: Acute Assessment and Plan: Will plan to schedule Left ESWL in a few weeks. She should follow up in the office in a week to reculture urine. NO further evaluation needed at this time. (3) Nausea: Code(s): R11.0 - Nausea Status: Acute Assessment and Plan: Increase water intake, activity and high fiber diet. No bowel movement since Wednesday. (4) Constipation: Code(s): K59.00 - Constipation, unspecified Status: Acute Subjective Subjective Date/Time Seen: 03/08/20 08:44 POD# 2 Cystoscopy, left ureteroscopy with retrograde pyelogram, left stent placement. Review of Systems Cardiovascular: Cardiovascular: Denies chest pain Respiratory: Respiratory: Reports no additional respiratory complaints Gastrointestinal: Gastrointestinal: Reports abdominal pain, Reports constipation, Reports nausea and Denies vomiting Exam Resp: Effort & Inspection: normal respiratory effort Cardio: Rate: regular rate GI: GI Palp: Yes abdominal tenderness (LLQ) and Yes Soft to palpation Extrem: General: no edema Objective Data Vital Signs Vital Signs: Vital Signs - 24 hr 03/07/20 10:00 03/07/20 12:00 03/07/20 14:00 Temperature 98 F Pulse Rate 96 88 103 H Respiratory Rate 12 Blood Pressure 99/56 L Pulse Oximetry 98 03/07/20 16:00 03/07/20 16:25 03/07/20 18:00 Temperature Pulse Rate 92 95 100 Respiratory Rate 16 Blood Pressure 122/74 Pulse Oximetry 97 03/07/20 19:32 03/07/20 20:00 03/08/20 00:00 Temperature 97.5 F L 97.8 F Pulse Rate 107 H 97 102 H Respiratory Rate 16 16 16 Blood Pressure 113/52 L 124/68 Pulse Oximetry 97 97 95 09/04/20 03:44 Temperature 97.8 F Pulse Rate 91 Respiratory Rate 16 Blood Pressure 117/56 L Pulse Oximetry 91 Intake/Output Intake/Output: Intake & Output 03/05/20 03/06/20 03/07/20 03/08/20 23:59 23:59 23:59 23:59 Intake Total 1150 3580 200 Output Total 700 800 Balance 1150 2880 -600 Meds/Results Medications: Active Medications Generic Name Dose Route Start Last Admin Trade Name Freq PRN Reason Stop Dose Admin Hydrocodone Bitart/Acetaminophen 1 tab 03/06/20 22:29 03/08/20 06:01 [place] 5-325 Mg PO 1 tab Q4H PRN Administration Pain Rated 4-6 Enoxaparin Sodium 40 mg 03/08/20 09:00 03/08/20 08:15 Lovenox SUB-Q 40 mg DAILY BUZZ Administration Ceftriaxone Sodium/Dextrose 1 gm in 50 mls @ 100 mls/hr 03/07/20 18:00 03/07/20 20:07 Rocephin 1 Gm/D5w 50 Ml IVPB Infused Q24H BUZZ Infusion Morphine Sulfate 4 mg 03/06/20 19:40 Morphine Sulfate Inj IV PUSH Q2H PRN Pain Rated 7-10 Ondansetron HCl 4 mg 03/06/20 19:40 03/08/20 08:10 Zofran Inj IV PUSH 4 mg Q4H PRN Administration Nausea Oxybutynin Chloride 5 mg 03/07/20 09:00 03/08/20 08:15 Ditropan PO 5 mg TID BUZZ Administration Phenazopyridine HCl 200 mg 03/07/20 08:00 03/08/20 08:15 Pyridium PO 200 mg TIDWM BUZZ Administration Radiology Results: ITS Impressions Abdomen/Pelvis CT 03/06/20 18:58 IMPRESSION: 7.8 x 4.2 x 9.5 mm obstructing left ureteral interval junction calculus with moderate left hydronephrosis Bilateral nonobstructive nephrolithiasis Multiple subcentimeter right renal cysts Indeterminate hypoattenuating 9 mm lesion of lateral mid left kidney. Indeterminate 2 c
--- NOTE | 2020-03-08 08:45 | PM.IMPN ---
Progress Note: A&P Assessment and Plan (1) Septicemia: Code(s): A41.9 - Sepsis, unspecified organism Status: Acute Assessment and Plan: Sepsis present on admission with tachycardia and tachypnea. WBC 10.6 on admission that increased to 19 but now normal. UCx positive. Lab called about positive BCx positive but not listed in the chart yet. WBC normal and no fevers but patient feels worse. Consider stress gastritis. Could be medication related (both pyridium and oxybutynin can cause nausea). Will continue Rocephin for now. Hold oxybutynin for now. Follow up on BCx. Add Protonix. No dysuria so will stop pyridium. (2) Ureteral stone: Code(s): N20.1 - Calculus of ureter Status: Acute Assessment and Plan: CT scan showing a 7.8 x 4.2 x 9.5 mm obstructing left ureteral interval junction calculus with moderate left hydronephrosis. She also has bilateral nonobstructive nephrolithiasis and multiple subcentimeter right renal cysts. s/p left ureteral stent placement 03/06/20. (3) Hydronephrosis: Qualifiers: Hydronephrosis type: with ureteral calculous obstruction Qualified Code(s): N13.2 - Hydronephrosis with renal and ureteral calculous obstruction Code(s): N13.30 - Unspecified hydronephrosis Status: Acute Assessment and Plan: Secondary to ureteral stone. Retroperitoneal US showing resolution of prior left hydronephrosis post left internal ureteral stent placement and a couple of nonobstructing 5 mm right renal stones. As above. Appreciate Urology input. (4) UTI (urinary tract infection): Qualifiers: Hematuria presence: with hematuria Urinary tract infection type: acute cystitis Qualified Code(s): N30.01 - Acute cystitis with hematuria Code(s): N39.0 - Urinary tract infection, site not specified Status: Acute Assessment and Plan: UA noted. Probably UTI but many squamous cells. Lab called about positve BCx but not listed in chart yet. UCx growing relatively cerda-sensitive Klebsiella. WBC normal now but she clinically feels worse. Continue current IV abx. Continue to monitor. Follow up on BCx results. (5) Liver lesion: Code(s): K76.9 - Liver disease, unspecified Status: Acute Assessment and Plan: CT scan as above but also showing an indeterminate 2 cm lesion of right hepatic lobe and pneumobilia. MRI for further evaluation of the right hepatic and left renal masses either during this hospitalization or as outpatient. (6) Kidney mass: Code(s): N28.89 - Other specified disorders of kidney and ureter Status: Acute Assessment and Plan: CT scan on admission as above but also showing multiple subcentimeter right renal cysts and an indeterminate hypoattenuating 9mm lesion of lateral mid left kidney. Check MRI here or as outpatient. (7) Hyperglycemia: Code(s): R73.9 - Hyperglycemia, unspecified Status: Acute Assessment and Plan: Glucose mildly elevated on admission but better now. Probably stress response. A1c 5.1. (8) DVT prophylaxis: Code(s): Z29.9 - Encounter for prophylactic measures, unspecified Status: Acute Assessment and Plan: Lovenox Subjective Date/time seen: 03/08/20 08:45 Interval history: 44yo female here for abdominal pain and found to have obstructing ureteral stone, UTI and septicemia. Ureteral stent placed 03/06/20. She feels worse this morning. No fever or chills. She feels nauseous this morning. She also feels hot and cold. Complains of headache. No dysuria or back pain. She still has the abdominal soreness . No bowel movement since admission Exam Narrative: Exam Narrative: AF 97.8 117/56 91 16 91% ra Gen - NARD Chest - CTA bilaterally, nml RR CV - RRR S1/S2 Abd - Soft. nondistended. mild LLQ and epigastric pain Back - no CVA tenderness Ext - No pedal edema Neuro - Alert and oriente
[2020-03-08 10:00] VITALS: BP 120/68; PULSE 81; RESP 16; TEMP 36.3; O2SAT 95
[2020-03-08] MEDS: PANTOPRAZOLE SODIUM IV 40 MG VIAL IV PUSH (10:03)
[2020-03-08 14:00] VITALS: BP 116/66; PULSE 90; RESP 15; TEMP 37.1; O2SAT 98
[2020-03-08] MEDS: polyethylene glycoL 3350 17 GM POWD.PACK PO (15:59)
[2020-03-08] MEDS: DOCUSATE SODIUM 100 MG CAPSULE PO ×2 (15:59→19:55)
[2020-03-08 18:00] VITALS: BP 123/74; PULSE 84; RESP 17; TEMP 36.6; O2SAT 99
[2020-03-08 20:52] VITALS: BP 130/84; PULSE 78; RESP 16; TEMP 36.5; O2SAT 99
[2020-03-09 00:58] VITALS: BP 126/72; PULSE 82; RESP 18; TEMP 36.6; O2SAT 98
[2020-03-09] MEDS: ONDANSETRON INJ 4 MG/2 ML VIAL IV PUSH ×3 (00:58→09:38)
[2020-03-09 06:00] VITALS: BP 108/56; PULSE 81; RESP 16; TEMP 36.2; O2SAT 98
[2020-03-09] MEDS: ENOXAPARIN 40 MG/0.4 ML SYRINGE SUB-Q (08:14)
[2020-03-09] MEDS: PANTOPRAZOLE SODIUM IV 40 MG VIAL IV PUSH (08:14)
[2020-03-09] MEDS: DOCUSATE SODIUM 100 MG CAPSULE PO ×2 (08:15→20:39)
[2020-03-09 10:00] VITALS: BP 109/58; PULSE 70; RESP 16; TEMP 36.4; O2SAT 99
--- NOTE | 2020-03-09 11:40 | PM.IMPN ---
Progress Note: A&P Assessment and Plan (1) Septicemia: Code(s): A41.9 - Sepsis, unspecified organism Status: Acute Assessment and Plan: Sepsis present on admission with tachycardia and tachypnea. WBC increased to 19K but now normal. UCx adn BCx positive for Klebsiella. Patient feeling better but still not eating much. Protonix started for possible stress gastritis. No dysuria so pyridium stopped. We held her oxybutynin since this can cause nausea. Will continue Rocephin Day 4. Encouraged her to try to advance her diet as she tolerates. (2) Ureteral stone: Code(s): N20.1 - Calculus of ureter Status: Acute Assessment and Plan: CT scan showing a 7.8 x 4.2 x 9.5 mm obstructing left ureteral interval junction calculus with moderate left hydronephrosis. She also has bilateral nonobstructive nephrolithiasis and multiple subcentimeter right renal cysts. s/p left ureteral stent placement 03/06/20. (3) Hydronephrosis: Qualifiers: Hydronephrosis type: with ureteral calculous obstruction Qualified Code(s): N13.2 - Hydronephrosis with renal and ureteral calculous obstruction Code(s): N13.30 - Unspecified hydronephrosis Status: Acute Assessment and Plan: Secondary to ureteral stone. Retroperitoneal US showing resolution of prior left hydronephrosis post left internal ureteral stent placement and a couple of nonobstructing 5 mm right renal stones. As above. Appreciate Urology input. (4) UTI (urinary tract infection): Qualifiers: Urinary tract infection type: acute pyelonephritis Qualified Code(s): N10 - Acute pyelonephritis Code(s): N39.0 - Urinary tract infection, site not specified Status: Acute Assessment and Plan: UA noted. UCx growing Klebsiella. BCx also growing similar organism with the dame resistance pattern. WBC normal now. She is feeling better but not eating much. Continue current IV abx. Continue to monitor. (5) Liver lesion: Code(s): K76.9 - Liver disease, unspecified Status: Acute Assessment and Plan: CT scan as above but also showing an indeterminate 2 cm lesion of right hepatic lobe and pneumobilia. Discussed with patient. Will proceed with MRI for further evaluation of right hepatic and left renal masses. (6) Kidney mass: Code(s): N28.89 - Other specified disorders of kidney and ureter Status: Acute Assessment and Plan: CT scan on admission as above but also showing multiple subcentimeter right renal cysts and an indeterminate hypoattenuating 9mm lesion of lateral mid left kidney. Check MRI here or as outpatient. (7) Hyperglycemia: Code(s): R73.9 - Hyperglycemia, unspecified Status: Acute Assessment and Plan: Glucose mildly elevated on admission but improved. Probably stress response. A1c 5.1. (8) DVT prophylaxis: Code(s): Z29.9 - Encounter for prophylactic measures, unspecified Status: Acute Assessment and Plan: Lovenox Subjective Date/time seen: 03/09/20 11:40 Interval history: 44yo female here for abdominal pain and found to have obstructing ureteral stone, UTI and septicemia. Ureteral stent placed 03/06/20. She feels better this morning. Nausea and SEGURA better this morning. No dysuria or hematuria. No back pain. Toelrating essentially a liquid diet. Exam Narrative: Exam Narrative: AF 97.5 109/58 70 16 99% ra Gen - NARD Chest - CTA bilaterally, nml RR CV - RRR S1/S2 Abd - Soft. ND. +BS. Mild epigastric pain. Ext - No pedal edema Psych - Nml mood and affect Skin - Warm and dry UCx growing Klebsiella that is relatively cerda-sensitive. BCx growing Klebsiella that is also realtively cerda-sensitive. Objective Data Vital Signs Vital Signs: Vital Signs - 24 hr 03/08/20 14:00 03/08/20 18:00 03/08/20 20:52 Temperature 98.7 F 97.9 F 97.7 F Pulse Rate 90 84 78 Respira
[2020-03-09 14:00] VITALS: BP 139/88; PULSE 85; RESP 16; TEMP 36.5; O2SAT 99
[2020-03-09 18:00] VITALS: BP 126/73; PULSE 89; RESP 14; TEMP 36.6; O2SAT 100
[2020-03-09 21:51] VITALS: BP 128/78; PULSE 80; RESP 16; TEMP 36.6; O2SAT 100
[2020-03-10 02:00] VITALS: BP 124/76; PULSE 60; RESP 16; TEMP 36.6; O2SAT 97
[2020-03-10 06:00] VITALS: BP 133/74; PULSE 67; RESP 16; TEMP 36.2; O2SAT 97
[2020-03-10] MEDS: DOCUSATE SODIUM 100 MG CAPSULE PO (08:14)
[2020-03-10] MEDS: ENOXAPARIN 40 MG/0.4 ML SYRINGE SUB-Q (08:15)
[2020-03-10] MEDS: PANTOPRAZOLE SODIUM IV 40 MG VIAL IV PUSH (08:15)
[2020-03-10 10:00] VITALS: BP 128/85; PULSE 90; RESP 16; TEMP 36.6; O2SAT 99
--- NOTE | 2020-03-10 13:04 | PM.DS ---
DS: Admitting Diagnosis Admitting Diagnosis Admitting Diagnosis: Left ureteral stone, UTI, sepsis DS: Discharge Diagnosis Discharge Diagnosis (1) Septicemia: Code(s): A41.9 - Sepsis, unspecified organism Status: Acute Assessment and Plan: Sepsis present on admission with tachycardia and tachypnea. WBC increased to 19K but now normal. UCx and BCx positive for Klebsiella. Patient feeling better but still not eating much. Protonix started for possible stress gastritis. No dysuria so pyridium stopped. We held her oxybutynin since this can cause nausea. We continued Rocephin. She feels much better. Eating better. She feels ready for discharge (2) Ureteral stone: Code(s): N20.1 - Calculus of ureter Status: Acute Assessment and Plan: CT scan showing a 7.8 x 4.2 x 9.5 mm obstructing left ureteral interval junction calculus with moderate left hydronephrosis. She also has bilateral nonobstructive nephrolithiasis and multiple subcentimeter right renal cysts. s/p left ureteral stent placement 03/06/20. Will need to follow up with urology for definitive treatment. (3) Hydronephrosis: Qualifiers: Hydronephrosis type: with ureteral calculous obstruction Qualified Code(s): N13.2 - Hydronephrosis with renal and ureteral calculous obstruction Code(s): N13.30 - Unspecified hydronephrosis Status: Acute Assessment and Plan: Secondary to ureteral stone. Retroperitoneal US showing resolution of prior left hydronephrosis post left internal ureteral stent placement and a couple of nonobstructing 5 mm right renal stones. As above. Appreciate Urology input. (4) UTI (urinary tract infection): Qualifiers: Urinary tract infection type: acute pyelonephritis Qualified Code(s): N10 - Acute pyelonephritis Code(s): N39.0 - Urinary tract infection, site not specified Status: Acute Assessment and Plan: UA noted. UCx growing Klebsiella. BCx also growing Klebsiella with the same resistance pattern. WBC normal now. She is feeling better. (5) Liver lesion: Code(s): K76.9 - Liver disease, unspecified Status: Acute Assessment and Plan: CT scan as above but also showing an indeterminate 2 cm lesion of right hepatic lobe and pneumobilia. Discussed with patient. We proceeded with MRI for further evaluation of right hepatic and left renal masses. MRI obtained but results pending. (6) Kidney mass: Code(s): N28.89 - Other specified disorders of kidney and ureter Status: Acute Assessment and Plan: CT scan on admission as above but also showing multiple subcentimeter right renal cysts and an indeterminate hypoattenuating 9mm lesion of lateral mid left kidney. MRI obtained with results pending. (7) Hyperglycemia: Code(s): R73.9 - Hyperglycemia, unspecified Status: Acute Assessment and Plan: Glucose mildly elevated on admission but improved. Probably stress response. A1c 5.1. DS: Summary Hospital Course Reason for hospitalization: 44yo female here for urosepsis with obstructing renal stone. Please see H&P for details. Hospital Course: As above. Time Spent with Patient Time attestation: Total time spent providing and/or coordinating discharge services:35 minutes Time spent: Greater than 30 minutes Specific discharge activities: discussed with patient. Discharge instruction discussed with urology Exam Narrative: Exam Narrative: Feeling much better. Walking in the halls. flatus, no BM. No n/v. Eating better AF 97.8 128/85 90 16 99% ra Gen - NARD Chest - CTA bilaterally, nml RR CV - RRR S1/S2 Abd - Soft. ND. +BS. Mild epigastric pain. Ext - No pedal edema Psych - Nml mood and affect Skin - Warm and dry Discharge Plan Discharge Attending physician on discharge: Lon Thomason Consulting providers: Kale Stewart Dis[facility]ing [facility]
--- NOTE | 2020-03-10 14:21 | PC.NURSE ---
Patient discharged without receiving influenza vaccine. Called patient at home and informed her and offered to have her come back to receive her flu vaccine. Patient declined, stating she is able to receive a flu vaccine at her work and will receive it there.
--- NOTE | 2020-03-14 14:41 | PC.NURSE ---
MRI results shown to Dr. Thomason.
--- NOTE | 2020-03-19 08:35 | PC.NURSE ---
MRI results faxed to Dr. Kuo.
== END 2020-03-10 14:05 | disposition home or self-care (01) | DRG 854 ==
LOC: ANHED 19:58 → ANHIMU 03-07 09:59 → ANH2MED 03-10 13:24 → ANHIMU 03-14 13:39
PROVIDERS: Emergency Medicine; Urology; Admitting Provider Family Medicine; Emergency Provider Emergency Medicine; PCP Family Medicine; Visit Provider Internal Medicine
PROC: 0T778DZ Dilation of Left Ureter with Intraluminal Device, Via Natural or Artificial Opening Endoscopic (ICD-10-PCS; CPT 52352; principal; 2020-03-06 20:40)
DX: A41.59 Other Gram-negative sepsis (principal); N13.6 Pyonephrosis; B96.1 Klebsiella pneumoniae [K. pneumoniae] as the cause of diseases classified elsewhere; K59.00 Constipation, unspecified; R73.9 Hyperglycemia, unspecified; K76.9 Liver disease, unspecified; N28.1 Cyst of kidney, acquired; E66.9 Obesity, unspecified; Z68.36 Body mass index [BMI] 36.0-36.9, adult
CPT/HCPCS: 36415; 74177; 74183; 74420; 76770; 80048; 80053; 81001; 83036; 83605; 83690; 85025; 85027; 87040; 87077; 87086; 87088; 87186; 96361; 96374; 96375; 99285; A9270; A9577; C1758; C1769; C2617; C9113; J0330; J0696; J1100; J1650; J1885; J2250; J2405; J2704; J3010; J7030; J7120; Q9966; Q9967

== ENCOUNTER → 2020-05-15 07:20 | Outpatient (CLI) | payer OTHER, SELFPAY ==
--- NOTE | ~2020-05-15 | XR_ITS ---
EXAMINATION: XR abdomen/kub 1V EXAM DATE: 05/15/2020 07:51 INDICATION: Right ureteral stone. TECHNIQUE: Frontal projection(s) of the abdomen for interpretation. There is no prior study for nahum jara. FINDINGS: Left double-J ureteral stent in position. There is expected amount of colonic stool and ga s. No small bowel dilation, nonobstructive bowel gas pattern. There are no suspicious calcificati ons identified. There is no organomegaly suspected. The bones are unremarkable. There is no myriam e intraperitoneal air. The lung bases are clear. IMPRESSION: Left ureteral stent in position. Reviewed, dictated and finalized at location A. T FURNACE AUXILIARIES SUPERVISOR
== END ==
PROVIDERS: Visit Provider Urology
DX: N20.1 Calculus of ureter (principal)
CPT/HCPCS: 74018

== ENCOUNTER 2020-07-19 12:00 | Outpatient (CLI) | payer OTHER, SELFPAY ==
--- NOTE | ~2020-07-19 | XR_ITS ---
EXAMINATION: XR abdomen/kub 1V EXAM DATE: 07/19/2020 12:10 INDICATION: 2 weeks post lithotripsy right side. TECHNIQUE: Frontal projection of the upper abdomen, frontal projection lower abdomen/pelvis for inter pretation. Comparison is made to prior examination from 05/15/2020. FINDINGS: Previously seen left ureteral stent has been removed. Possible small right nephrolithiasis versus colonic stool. No other suspicious densities. Sacrum, sacroiliac joints, sacral arcuate lines are intact. No small bowel dilation. There is no organomegaly. IMPRESSION: Possible small right nephrolithiasis. Reviewed, dictated and finalized at location B. FORM PREPARER
== END 2020-07-19 12:01 | disposition home or self-care (01) ==
PROVIDERS: PCP Family Medicine; Visit Provider Urology
DX: Z98.890 Other specified postprocedural states (principal)
CPT/HCPCS: 74018

== ENCOUNTER 2021-09-05 16:07 | Outpatient (CLI) | payer OTHER, SELFPAY ==
--- NOTE | ~2021-09-05 | US_ITS ---
US retroperitoneal comp 09/05/2021 16:35 Procedure: Realtime transabdominal ultrasound of the kidneys and bladder. Indication: History of renal stones. Comparison: Ultrasound dated 03/07/2020 Findings: Renal echotexture is normal bilaterally without hydronephrosis, contour deforming mass or r enal calculus. The right kidney measures 10.8 cm and left kidney measures 11.6 cm. Bladder within no rmal limits. Impression: 1: Unremarkable renal ultrasound. No stones, masses or hydronephrosis. Reviewed, dictated and finalized at location A. ND GENERATOR MANAGER Impression: 1: Unremarkable renal ultrasound. No stones, masses or hydronephrosis.
--- NOTE | ~2021-09-05 | XR_ITS ---
XR abdomen/kub 1V 09/05/2021 16:39 INDICATION: History of kidney stones TECHNIQUE: KUB COMPARISON: 07/19/2020 FINDINGS: Bowel gas pattern is normal. There is no evidence of free air, mass, organomegaly, ascites or obstruction. No abnormal calculi are seen. The bones appear intact. IMPRESSION: 1: No acute abdominal abnormality identified. Reviewed, dictated and finalized at location A. HOUSE DIRECTOR
== END 2021-09-05 16:08 | disposition home or self-care (01) ==
LOC: ANHIMG 16:13
PROVIDERS: PCP Family Medicine; Visit Provider Urology
DX: Z87.442 Personal history of urinary calculi (principal)
CPT/HCPCS: 74018; 76770

== ENCOUNTER 2024-04-13 14:14 | Outpatient (CLI) | payer OTHER, SELFPAY ==
--- NOTE | ~2024-04-13 | MM_ITS ---
EXAMINATION: MM screening [facility] BI w charity HISTORY: Screening TECHNIQUE: Craniocaudal and mediolateral oblique 3-D tomosynthesis images were obtained and synthetic 2-D images were generated. CAD analysis was submitted and interpreted. COMPARISON: No prior mammogram is available for comparison at this institution. BREAST PARENCHYMAL COMPOSITION: Not dense: There are scattered areas of fibroglandular density. FINDINGS: There is no evidence of suspicious mass, calcification, or architectural distortion to sugg est malignancy in either breast. There has been no suspicious interval change. IMPRESSION: 1. No mammographic evidence of malignancy. 2. Recommend routine screening mammography in one year. BI-RADS Category 1: Negative Reviewed, dictated and finalized at location B.
== END 2024-04-13 14:15 | disposition home or self-care (01) ==
LOC: MICIMG 14:15
PROVIDERS: PCP Family Medicine; Visit Provider Physician Assistant Medical
DX: Z12.31 Encounter for screening mammogram for malignant neoplasm of breast (principal)
CPT/HCPCS: 77063; 77067

== ENCOUNTER 2024-09-29 10:16 | Outpatient (CLI) | payer OTHER, SELFPAY ==
--- NOTE | ~2024-09-29 | US_ITS ---
EXAMINATION: US pelvic complete w TV INDICATION: Abnormal Pap smear. Comparison:CT dated 03/06/2020 TECHNIQUE: Multiple transabdominal and endovaginal sonographic images of the pelvis performed. FINDINGS: The uterus measures 8.7 x 4.7 x 5 cm. There is a small hypoechoic mass anteriorly in the ut erus measuring 1.3 cm, consistent with fibroid. The endometrial complex measures 8 mm. The right ovary measures 3 x 2 x 2.7 cm and the left ovary is not visualized. There are small follicl es in the right ovary. Normal doppler signal in the right ovaries. There is no free fluid in the pelvis. There are no abnormal masses seen on either side. IMPRESSION: 1. Small uterine fibroid measuring 1.3 cm. Reviewed, dictated and finalized at location A.
== END 2024-09-29 10:17 | disposition home or self-care (01) ==
LOC: MICIMG 10:17
PROVIDERS: PCP Family Medicine; Visit Provider Nurse Practitioner Obstetrics & Gynecology
DX: D25.9 Leiomyoma of uterus, unspecified (principal); R87.619 Unspecified abnormal cytological findings in specimens from cervix uteri
CPT/HCPCS: 76830; 76856

== ENCOUNTER 2025-01-04 02:21 | Observation (INO) | payer OTHER, SELFPAY ==
[2025-01-04] VITALS (9 sets, daily range): BP systolic 127–145; BP diastolic 75–92; PULSE 82–97; RESP 11–20; TEMP 36.1–36.6; O2SAT 96–100; BMI 40.2
--- NOTE | ~2025-01-04 | CT_ITS ---
Clinical Indication: Epigastric pain, chest pain CT Scan of the Chest, Abdomen, and Pelvis with Contrast: Technique: Contiguous sections were acquired throughout the chest, abdomen, and pelvis after intraven ous administration of 100 cc of Omnipaque 350. Dose reduction technique was used on this scan by uti lizing automated exposure control and iterative reconstruction technique. The dose-length product (DL P) was 1920.05 mGy-cm. Findings: There is no evidence of any significant mediastinal, hilar or axillary lymphadenopathy. The mediastin al soft tissues appear normal. There is no evidence of pleural or pericardial effusion. The lungs are clear. No pulmonary nodules or infiltrates are noted. The liver, spleen, pancreas, gallbladder, adrenals and left kidney are within normal limits. Small no nobstructing right renal stones are present. No evidence of aortic aneurysm. No lymphadenopathy. No bowel obstruction or bowel wall thickening. There is no evidence to suggest acute appendicitis. Urinary bladder is unremarkable. No pelvic mass seen. No ascites. Impression: No acute abnormality. Small nonobstructing right renal stones. Reviewed, dictated and finalized at [facility]. Impression: No acute abnormality. Small nonobstructing right renal stones.
--- NOTE | ~2025-01-04 | US_ITS ---
Limited Abdominal Sonogram: Real-time sonographic imaging of the right upper quadrant was performed. Clinical History: Pancreatitis Findings: The liver appears echogenic, with no evidence of mass lesion or bile duct dilatation. Main portal vein demonstrates normal direction of flow. The gallbladder is well distended, and appears no rmal with no evidence of gallstone or wall thickening. The common bile duct measures 4 mm. The visua lized pancreas, aorta, and IVC are unremarkable. Impression: Diffuse fatty infiltration of the liver. Reviewed, dictated and finalized at location [facility]. Impression: Diffuse fatty infiltration of the liver.
--- OUTSIDE RECORDS SUMMARY | 2025-01-04 02:22 | XMS_ITS | Clinical Summary ---
Author Organization [facility] Address [address] [place] [id number] Care Team Providers Care Hand Cloth Cutter Name Role Phone Dilcia Montoya MD Primary Care Provider [phone] Social History Tobacco Use Types Packs/Day Years Used Date Smoking Tobacco: Never Assessed Comments Unknown Sex and Gender Information Value Date Recorded Sex Assigned at Not on file Legal Sex Female 4:51 PM CDT Gender Identity Not on file Sexual Orientation Not on file Plan of Treatment Health Maintenance Due Date Last Done Comments Cervical Cancer Screening Pa p Smear (Age 30 to 64) Every 3 Years 1977 Colorectal Cancer Screening Colonoscopy (10 Years) 1977 Annual Physical 1980 Hepatitis C 1995 DTaP, Tdap and Td Vaccines ( 1 - Tdap) 1996 Hepatitis B Vaccines (1 of 3 - 19+ 3-dose series) 1996 Cervical Cancer Screening Pa p with HPV Testing (Age 30 to 64) Every 5 Years 2007 Cervical Cancer Screening with HPV 2007 Mammogram Screening 2017 COVID-19 Vaccine (2023-2 5 season) 2024 Meningococcal B Vaccine Aged Out No l onger eligible based on patient's age to complete this topic Meningococcal Vaccine Aged Out No jesús makayla eligible based on patient's age to complete this topic Pneumococcal Vaccine: Pediat rics (0 to 5 Years) and At-Risk Patients (6 to 49 Years) Aged Out No longer eligible b ased on patient's age to complete this topic RSV Immunizations Under 20 Months Aged Out No longer eligible based on patient's age to complete this topic Care Teams Hand Cloth Cutter Relationship Specialty Start Date End Date Dilcia Montoya MD [address] [place] [address] [facility] - General 05/10/11
--- OUTSIDE RECORDS SUMMARY | 2025-01-04 02:22 | XMS_ITS | Clinical Summary ---
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 Gender Identity Not on file Sexual Orientation Not on file Plan of Treatment Health Maintenance Due Date Last Done Comments Hepatitis C Virus (HCV) Screening 1977 TdaP Immunization 1977 Hepatitis B Immunization (1 of 3 - 19+ 3-dose series) 1996 Colonoscopy 2022 Colorectal Cancer Screening 2022 SARS-COV-2 Immunization ( season) 2024 06/06/2021, 10/08/2020, 09/16/2020 Influenza Immunization (Seas on Ended) 2025 04/01/2019 Respiratory Syncytial Virus (RSV) Immunization (Adult) (1 - 1-dose 75+ series) 2052 Human Papillomavirus (HPV) Immunization Aged Out No longer eligible b ased on patient's age to complete this topic Meningococcal Immunization (ACWY) Aged Out No longer eligible b ased on patient's age to complete this topic Pneumococcal Immunization Combined Aged Out No longer eligible b ased on patient's age to complete this topic Rotavirus Immunization Aged Out No lo nger eligible based on patient's age to complete this topic
--- OUTSIDE RECORDS SUMMARY | 2025-01-04 02:22 | XMS_ITS | Clinical Summary ---
Author Organization [facility] Address [address] [place] [address] Care Team Providers Care Scientific Process Operator Name Role Phone Unavailable Primary Care Provider Unavailabl e Encounters Date Type Department Care Team Description 12/19/2024 External Device Data ST[facility] ABSTRACTION Provider, Abstract 11/23/2024 External Device Data ST[facility] ABSTRACTION Provider, Abstract 11/22/2024 External Device Data STL ABSTRACTION Provider, Abstract 11/21/2024 External Device Data STL ABSTRACTION Provider, Abstract 10/17/2024 External Device Data STL ABSTRACTION Provider, Abstract from Last 3 Months Social History Tobacco Use Types Packs/Day Years Used Date Smoking Tobacco: Never Assessed Comments Unknown Sex and Gender Information Value Date Recorded Sex Assigned at Not on file Legal Sex Female 2:35 PM CDT Gender Identity Not on file Sexual Orientation Not on file Plan of Treatment Health Maintenance Due Date Last Done Comments DTAP/TDAP/TD VACCINES (1 - Tdap) 1996 HEPATITIS B VACCINES (1 of 3 - 19+ 3-dose series) 04/05 HPV/Cotest (21-29) 1998 CERVICAL CANCER SCREENING 2007 HPV/Cotest (30-65) 2007 PAP SMEAR 2007 BREAST CANCER SCREENING 2017 COLORECTAL SCREENING 2022 Colorectal Cancer Screening 2022 FIT-DNA Q 3 years 2022 FIT/FOBT Q 1 year 2022 Flex Sig/CT Colonography Q 5 years 2022 INFLUENZA VACCINE (#1) 2024 Insurance RX [employer] RX Member Subscriber Plan / Payer (Ef fective 2024-Present) Name:Clair Moreno Relation to Subscriber:Self Name:Clair Moreno Subscriber ID:Not on file Payer ID:Not on file Type:RX Commercial Address: [address]
--- OUTSIDE RECORDS SUMMARY | 2025-01-04 02:22 | XMS_ITS | Clinical Summary ---
Author Organization [facility] Medical [facility] 2 Address [address] [facility] [place] [address] Care Team Providers Care Artificial Pearl Maker Name Role Phone Eulalia Kuo MD Primary Care Provider [phone] Allergies Active Allergy Reactions Criticality Noted Date Comments Sumatriptan Anaphylaxis High 05/18/2019 Medications pancrelipase (CREON) 36,000 units of lipase capsuleIndications :exocrine pancreatic insufficiency Take tabs 2 with meals, 1 tab with snacks 270 capsule 3 0 Active Active Problems Problem Noted Date Diagnosed Date Acute pancreatitis 05/20/2019 Pancreas [place] pancreas 05/20/2019 Surgical History Surgery Date Site/Laterality Comments PANCREAS SURGERY 07/05/2000 - 07/04/2001 Medical History Medical History Date Comments Pancreatitis Wrist fracture Right Social History Tobacco Use Types Packs/Day Years Used Date Smoking Tobacco: Never Smokeless Tobacco: Never Alcohol Use Standard Drinks/Week Comments Yes 0 (1 standard drink = 0.6 oz pur e alcohol) 1 drink per month Comments Unknown Sex and Gender Information Value Date Recorded Sex Assigned at Not on file Legal Sex Female 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 Gender Identity Not on file Sexual Orientation Not on file Obstetrics History Last Filed Vital Signs Vital Sign Reading Time Taken Comments Blood Pressure 138/90 01/10/2024 1:58 PM CDT Pulse 110 01/10/2024 1:58 PM CDT Temperature 36.9 C (98.5 F) 01/10/2024 1:58 PM CDT Respiratory Rate 20 01/10/2024 1:58 PM CDT Oxygen Saturation 98% 01/10/2024 1:58 PM CDT Inhaled Oxygen Concentration - - Weight 105.7 kg (233 lb) 01/10/2024 1:58 PM CDT Height 167.6 cm (5' 6) 01/10/2024 1:58 PM CDT Body Mass Index 37.61 01/10/2024 1:58 PM CDT Plan of Treatment Health Maintenance Due Date Last Done Comments Breast Cancer Screening-Mammogram 1977 Cervical Cancer Screening 1977 Colon Cancer Screening-Colonoscopy 1977 Depression Screening 1977 Hepatitis C Screening 1977 DTaP/Tdap/Td Vaccine (1 - Tdap) 1988 Hepatitis B Screening 1995 Regular Well Visit/Exam 18-64 1995 Influenza Vaccine (#1) 2025 04/01/2019 Pneumococcal vaccine <65 Aged Out No longer eligible based on patient's age to complete this topic Insurance [email or web address] CHOICE [employer] OPEN ACCESS [facility] OPEN ACCESS Care Teams Artificial Pearl Maker Relationship Specialty Start Date End Date Eulalia Kuo MD PCP - General Family Medicine 04/07/19
--- OUTSIDE RECORDS SUMMARY | 2025-01-04 02:22 | XMS_ITS | Referral Summary ---
Author Organization [facility] Medical [facility] 2 Address [address] [facility] [place] [address] Care Team Providers Care Wire Machine Cutter Name Role Phone Eulalia Kuo MD Primary Care Provider [phone] Allergies Active Allergy Reactions Criticality Noted Date Comments Sumatriptan Anaphylaxis High 05/18/2019 Medications pancrelipase (CREON) 36,000 units of lipase capsuleIndications :exocrine pancreatic insufficiency Take tabs 2 with meals, 1 tab with snacks 270 capsule 3 0 Active Active Problems Problem Noted Date Diagnosed Date Acute pancreatitis 05/20/2019 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 05/20/2019 Social History Tobacco Use Types Packs/Day Years Used Date Smoking Tobacco: Never Smokeless Tobacco: Never Alcohol Use Standard Drinks/Week Comments Yes 0 (1 standard drink = 0.6 oz pur e alcohol) 1 drink per month Comments Unknown Sex and Gender Information Value Date Recorded Sex Assigned at Not on file Legal 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
--- NOTE | 2025-01-04 02:30 | ECG_ITS ---
Test Date: 2025-01-04 02:37:00 Measurements Intervals [place] Rate: 89 P: 31 NM: 170 QRS: 43 QRSD: 77 T: 16 QT: 383 QTc: 468 Interpretive Statements SINUS RHYTHM POSSIBLE LEFT ATRIAL ENLARGEMENT [-0.1mV P-WAVE IN V1/V2] No previous ECG available for comparison Electronically Signed On 01-04-2025 16:39:16 CDT by Maximilian Baugh
--- NOTE | 2025-01-04 02:36 | ED.ABDPAIN ---
HPI - Abdominal Pain General Chief Complaint: Abdominal Pain Stated Complaint: abd pain Time Seen by Provider: 01/04/25 02:23 Source: patient Mode of arrival: ambulatory Limitations: no limitations History of Present Illness HPI narrative: Patient presents with acute onset epigastric abdominal pain. Also causing chest discomfort when having waves of pain. Described as a cramping/tightness. Pain radiates to back/low back. History of pancreatitis requiring duct dilation (25 years ago at [place]) and also history kidney stone complicated by sepsis. Not short of breath exactly but finds self breathing deeper. No cough. no herb doctor. No history of cholecystectomy. Had broccoli and homemade chicken emma for dinner, didn't believe particularly spicy or greasy. LMP now-esteban, had a biopsy followed by a 20d period that had seemingly started to end today. 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 No diarrhea, constipation, bloody stool but also no relief of pain. No other vaginal discharge. Nausea with the pain, no vomiting. Broke out in cold sweat. No fevers. Hasn't seen a GI in years, EGD and colonoscopy performed years ago. No dysuria, urgency/frequency, hematuria. Cardiac risk factors: HTN - No HLD - No Obesity - Yes Smoker - No Hx - No Fam Hx - No Related Data Home Medications ?Medication ?Instructions ?Recorded ?Confirmed ?Last Taken ?Type No Home Medications 11/08/23 01/04/25 Unknown History Allergies Allergy/AdvReac Type Severity Reaction Status Date / Time sumatriptan Allergy Mild Agitated Verified 01/04/25 09:19 SUMATRIPTAN SUCCINATE Allergy Severe DIFFICULTY Uncoded 01/04/25 09:19 BREATHING PMFSH Past Medical History Medical History (Updated 01/04/25 @ 05:39 by SHAZIA Muse) Abdominal pain Pancreatitis Migraine Surgical History Surgical History History of pancreatic surgery Family History Family History Father COPD (chronic obstructive pulmonary disease) Asthma Cerebrovascular accident Diabetes mellitus Hypertension Malignant neoplasm of prostate Mother MVP (mitral valve prolapse) Social History Social History Smoking status: Never smoker Second hand tobacco smoke exposure: No Alcohol intake: never Alcohol use details: does not use any more Substance use: never Substance use type: does not use Do You Feel Safe in your Home?: Yes Lack of Transportation: No Lack of Food: Never True Current Housing: I Have Housing Concerned About Future Housing: No Difficulty Paying Gas/Electric Bills: No Difficulty Paying for Meds: No Currently Unemployed: No Education: High School Diploma/GED Difficulty w/ Childcare or Family Care: No Gender identity (if verbalized by the patient): Female Spiritual care concerns: No Exam Narrative: GENERAL: Well-appearing, well-nourished, and in no acute distress. HEAD: Normocephalic, atraumatic. EYES: Non injected, non icteric ENT: Nares clear, no rhinorrhea or epistaxis. Gross auditory acuity intact. NECK: Supple. No meningismus. CHEST: Speaking in full sentences. No respiratory distress. HEART: Regular rate and rhythm. . ABDOMEN: Obese but Soft, mildly distended. TTP at epigastrium but No rigidity or guarding. Not peritoneal EXTREMITIES: Normal range of motion. No lower extremity edema. SKIN: Warm, dry, no rash. NEURO: No focal deficits. Alert and oriented. Answering questions. Following commands. Normal speech without aphasia or dysarthria. PSYCH: Normal mood and affect. Course Vital Signs Vital signs: Vital Signs Temperature 97.8 F 01/04/25 02:30 Pulse Rate 91 01/04/25 02:30 Respiratory Rate 16 01/04/25 02:30 Blood Pressure 131/79 01/04/25 02:30 Pulse Oximetry 100 01/04/25 02:30 Oxygen Delivery Room Air 01/04/25 02:30 Temperature 97.9 F 01/05/25 05:32 Pulse Rate 96 01/05/25 05:32 Respiratory Rate 16 01/05/25 08:32 Blood Pressure 135/81 01/05/25 05:32 Pulse Oximetry 96 01/05/25 08:32 Oxygen Delivery Room Air 01/05/25 08:32 Fraction of Inspired Oxygen 21 01/04/25 20:45 MDM - Abdominal Pain MDM Narrative Medical decision making narrative: Patient presents with epigastric abdominal pain, also radiating into chest and assoiated with back/low back pain. In the emergency department they are afebrile with vital signs within normal limits. Lipase is elevated greater than 7000. This combined with patient's description of pain is consistent with acute pancreatitis. CT scan is not read with this notation, but still believe should admit for this diagnosis and further work up. Patient has a repeat troponin 3 are pending although low suspicion for cardiac etiology. She denies drinking alcohol. She still has her gallbladder so right upper quadrant ultrasound is ordered to be performed later today. Discussed with longitudinal float operator hospitalist GURVINDER Westbrook for admission. Differential Diagnosis Differential diagnosis: Likely abdominal pain, constipation, diverticulitis, endometriosis, pancreatitis and other (gastritis/GERD; ACS; atypical chest pain) Lab Data Attestation: I reviewed the patient's lab results. Lab results narrative: CBC generally unremarkable except for mild abnormalities on the differential test negative. 01/05/25 05:17 01/05/25 05:17 Labs: Lab Results 01/04/25 01/04/25 01/04/25 Range/Units 02:36 03:01 03:29 WBC 9.5 (4.5-10.0) K/mm3 RBC 4.88 (4.2-5.4) M/mm3 Hgb 13.6 (12.0-15.0) g/dL Hct 43.1 (37.0-47.0) % MCV 88.3 (80-100) fl MCH 27.9 (26-34) pg MCHC 31.6 L (32-36) g/dl RDW 13.4 (11.5-14.5) % Plt Count 281 (150-375) k/mm3 MPV 11.1 H (7.4-10.4) fl Immature Gran % (Auto) 0.4 (0-0.5) % Neut % (Auto) 67.8 (45.5-73.1) % Lymph % (Auto) 19.9 (18.3-44.2) % [place] % (Auto) 9.7 H (2.6-8.5) % Eos % (Auto) 1.9 (0-4.4) % Baso % (Auto) 0.3 (0.2-1.2) % Lymph # (Auto) 1.88 (0.9-3.2) K/mm3 [place] # (Auto) 0.9 H (0.1-0.6) K/mm3 Eos # (Auto) 0.2 (0-0.3) K/mm3 Baso # (Auto) 0.0 (0.0-0.1) K/mm3 Abs Immat Gran (auto) 0.04 H (0.00-0.031) K/mm3 Absolute Neuts (auto) 6.4 (1.3-6.7) K/mm3 Absolute Nucleated RBC 0.000 (0.0-0.012) K/mm3 Nucleated RBC % 0.0 (0.0-0.2) % Sodium 137 (137-145) mmol/L Potassium 3.8 (3.4-5.0) mmol/L Chloride 102 (98-107) mmol/L Carbon Dioxide 25 (22-30) mmol/L Anion Gap 10 (4-12) mmol/L BUN 10 D (7-17) mg/dL Creatinine 0.88 (0.7-1.0) mg/dL Estim Creat Clear Calc 85 ml/min Estimated GFR > 60 (59 - ) Glucose 137 H (65-110) mg/dL Calcium 9.2 (8.4-10.2) mg/dL Total Bilirubin 0.4 (0.2-1.3) mg/dL AST 21 (14-36) U/L ALT 24 (6-35) U/L Alkaline Phosphatase 110 (38-126) U/L Troponin I < 0.012 (0.000-0.034) ng/mL Total Protein 7.1 (6.3-8.2) g/dL Albumin 4.2 (3.5-5.1) g/dL Lipase 7910 H (23-300) U/L Urine Color Yellow (Yellow) Urine Appearance Cloudy H (Clear) Urine pH 5.5 (5.0-9.0) Ur Specific [place] 1.019 (1.001-1.035) Urine Protein Trace (Negative) mg/dL Urine Glucose (UA) Negative (Negative) mg/dL Urine Ketones Trace H (Negative) mg/dL Ur Blood (Man) 2+ H (Negative) Urine Nitrate Negative (Negative) Urine Bilirubin Negative (Negative) Urine Urobilinogen 0.2 (<2.0) mg/dL Leukocyte Esterase Rfl Trace H (Negative) CAMPBELL/UL Urine RBC 0-2 (0-2) /hpf Urine WBC 0-5 (0-3) /hpf Ur Squamous Epith Cells Few (Few) /hpf Urine Bacteria Rare /hpf Urine Casts 0-2 POC Urine HCG, Qual (Negative) 01/04/25 Range/Units 03:31 WBC (4.5-10.0) K/mm3 RBC (4.2-5.4) M/mm3 Hgb (12.0-15.0) g/dL Hct (37.0-47.0) % MCV (80-100) fl MCH (26-34) pg MCHC (32-36) g/dl RDW (11.5-14.5) % Plt Count (150-375) k/mm3 MPV (7.4-10.4) fl Immature Gran % (Auto) (0-0.5) % Neut % (Auto) (45.5-73.1) % Lymph % (Auto) (18.3-44.2) % [place] % (Auto) (2.6-8.5) % Eos % (Auto) (0-4.4) % Baso % (Auto) (0.2-1.2) % Lymph # (Auto) (0.9-3.2) K/mm3 [place] # (Auto) (0.1-0.6) K/mm3 Eos # (Auto) (0-0.3) K/mm3 Baso # (Auto) (0.0-0.1) K/mm3 Abs Immat Gran (auto) (0.00-0.031) K/mm3 Absolute Neuts (auto) (1.3-6.7) K/mm3 Absolute Nucleated RBC (0.0-0.012) K/mm3 Nucleated RBC % (0.0-0.2) % Sodium (137-145) mmol/L Potassium (3.4-5.0) mmol/L Chloride (98-107) mmol/L Carbon Dioxide (22-30) mmol/L Anion Gap (4-12) mmol/L BUN (7-17) mg/dL Creatinine (0.7-1.0) mg/dL Estim Creat Clear Calc ml/min Estimated GFR (59 - ) Glucose (65-110) mg/dL Calcium (8.4-10.2) mg/dL Total Bilirubin (0.2-1.3) mg/dL AST (14-36) U/L ALT (6-35) U/L Alkaline Phosphatase (38-126) U/L Troponin I (0.000-0.034) ng/mL Total Protein (6.3-8.2) g/dL Albumin (3.5-5.1) g/dL Lipase (23-300) U/L Urine Color (Yellow) Urine Appearance (Clear) Urine pH (5.0-9.0) Ur Specific [place] (1.001-1.035) Urine Protein (Negative) mg/dL Urine Glucose (UA) (Negative) mg/dL Urine Ketones (Negative) mg/dL Ur Blood (Man) (Negative) Urine Nitrate (Negative) Urine Bilirubin (Negative) Urine Urobilinogen (<2.0) mg/dL Leukocyte Esterase Rfl (Negative) CAMPBELL/UL Urine RBC (0-2) /hpf Urine WBC (0-3) /hpf Ur Squamous Epith Cells (Few) /hpf Urine Bacteria /hpf Urine Casts POC Urine HCG, Qual Negative (Negative) Imaging Data Radiologist's impression: ITS Impressions Chest/Abdomen/Pelvis CT 01/04/25 05:31 Impression: No acute abnormality. Small nonobstructing right renal stones. Abdomen Ultrasound 01/04/25 08:04 Impression: Diffuse fatty infiltration of the liver. CT Chest with Contrast Stat Rad: No acute process within the chest. No acute osseous abnormality. No incidental findings CT abdomen and pelvis with contrast Stat Rad: No acute process within the abdomen or pelvis. No acute osseous abnormality. Incidental findings nephrolithiasis. ECG Data EKG #1: Attestation: I personally reviewed and interpreted this ECG as follows: ECG completion date: 01/04/25 ECG completion time: 02:37 Interpretation: Normal sinus rhythm at a rate of 89 beats per minute. OH interval 170. QRS 77. QT/QTC 383/430. Good R-wave progression across the precordial leads. No marked T-wave inversions or ST segment elevations or depressions. EKG #2: Attestation: I personally reviewed and interpreted this ECG as follows: ECG completion date: 01/04/25 ECG completion time: 06:07 Interpretation: Normal sinus rhythm at a rate of 88 beats per minute. OH interval 169. QRS 75. QT/QTC 358/4 4. Good R-wave progression across the precordial leads and T-wave inversion in lead 3 but upright in normal in contiguous inferior leads 2 and AVF. No other T-wave inversions. Discharge Plan Discharge Clinical Impression: Acute pancreatitis Patient Disposition: Still a Patient Condition: Stable Time of Disposition: 05:11
[2025-01-04 02:42] LABS: Hematocrit 43.1 % (37.0-47.0); Hemoglobin 13.6 g/dL (12.0-15.0); Immature Granulocyte Percent A 0.4 % (0-0.5); Lymphocytes Absolute Auto 1.88 K/mm3 (0.9-3.2); Mean Corpuscular HGB Conc 31.6 g/dl (32-36); Mean Corpuscular Hemoglobin 27.9 pg (26-34); Mean Corpuscular Volume 88.3 fl (80-100); Nucleated Red Blood Cells Absolute Auto 0.000 K/mm3 (0.0-0.012); Nucleated Red Blood Cells Perc 0.0 % (0.0-0.2); Platelet Count Result 281 k/mm3 (150-375); Red Blood Count 4.88 M/mm3 (4.2-5.4); White Blood Count 9.5 K/mm3 (4.5-10.0)
--- OUTSIDE RECORDS SUMMARY | 2025-01-04 02:46 | XMS_ITS | Clinical Summary ---
Author Organization [facility] Address [address] [place] [address] Care Team Providers Care Crosscutter Rolled Glass Name Role Phone Unavailable Primary Care Provider [...] Q 5 years 2022 INFLUENZA VACCINE (#1) 2025 Insurance RX [employer] RX Member Subscriber Plan / Payer (Ef fective 2024-Present) Name:Clair Moreno Relation to Subscriber:Self Name:Clair Moreno Subscriber ID:Not on file Payer ID:Not on file Type:RX Commercial Address: [place]
--- OUTSIDE RECORDS SUMMARY | 2025-01-04 02:46 | XMS_ITS | Clinical Summary ---
Author Organization [facility] Address [address] [place] [id number] Care Team Providers Care Nutrition Instructor Name Role Phone Dilcia Montoya MD Primary Care Provider [phone] Social History Tobacco Use Types Packs/Day Years [...] age to complete this topic Care Teams Nutrition Instructor Relationship Specialty Start Date End Date Dilcia Montoya MD [address] [place] [address] [facility] - General 05/10/11
--- OUTSIDE RECORDS SUMMARY | 2025-01-04 02:46 | XMS_ITS | Referral Summary ---
Author Organization [facility] Medical [facility] 2 Address [address] [place] [address] Care Team Providers Care Loss Prevention Lead Name Role Phone Eulalia Kuo MD Primary Care Provider [phone] Allergies Active Allergy Reactions Criticality Noted Date Comments Sumatriptan Anaphylaxis High 05/18/2019 Medications pancrelipase (CREON) 36,000 units of lipase capsuleIndications :exocrine pancreatic insufficiency Take tabs 2 with meals, 1 tab with snacks 270 capsule 3 0 Active Active Problems Problem Noted Date Diagnosed Date Acute pancreatitis 05/20/2019 Pancreas divisum of [place] pancreas 05/20/2019 Social History Tobacco Use Types Packs/Day Years Used Date Smoking Tobacco: Never Smokeless Tobacco: Never Alcohol Use Standard Drinks/Week Comments Yes 0 (1 standard drink = 0.6 oz pur e alcohol) 1 drink per month Comments Unknown Sex and Gender Information Value Date Recorded Sex Assigned at Not on file Legal Sex Female 10:11 PM [employer] Gender Identity Not on file Sexual Orientation [...] Plan of Treatment Not on file Insurance [employer] OPEN ACCESS [employer] OPEN ACCESS Care Teams Loss Prevention Lead Relationship Specialty Start Date End Date Eulalia Kuo MD PCP - General Family Medicine 04/07/19
--- OUTSIDE RECORDS SUMMARY | 2025-01-04 02:46 | XMS_ITS | Clinical Summary ---
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
--- OUTSIDE RECORDS SUMMARY | 2025-01-04 02:46 | XMS_ITS | Clinical Summary ---
Author Organization [facility] Medical [facility] Address [address] [address] [place] [address] Care Team Providers Care Solar Energy Advisor Name Role Phone Eulalia Kuo MD Primary Care Provider Allergies Active Allergy Reactions Criticality Noted Date Comments Sumatriptan Anaphylaxis High 05/18/2019 Medications pancrelipase (CREON) 36,000 units of lipase capsuleIndications :exocrine pancreatic insufficiency Take tabs 2 with meals, 1 tab with snacks 270 capsule 3 0 Active Active Problems Problem Noted Date Diagnosed Date Acute pancreatitis 05/20/2019 Pancreas divisum of [place] pancreas 05/20/2019 Surgical History Surgery Date Site/Laterality [...] on file 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
[2025-01-04] MEDS: MORPHINE SULFATE (*CRX) 4 MG/ML INJ IV PUSH ×3 (02:53→09:57)
[2025-01-04] MEDS: ONDANSETRON INJ 4 MG/2 ML VIAL IV PUSH ×2 (02:54→15:25)
[2025-01-04 03:19] LABS: Alanine Aminotransferase 24 U/L (6-35); Albumin Level 4.2 g/dL (3.5-5.1); Alkaline Phosphatase 110 U/L (38-126); Anion Gap 10 mmol/L (4-12); Aspartate Amino Transferase 21 U/L (14-36); Bilirubin,Total 0.4 mg/dL (0.2-1.3); Blood Urea Nitrogen 10 mg/dL (7-17); Calcium 9.2 mg/dL (8.4-10.2); Carbon Dioxide 25 mmol/L (22-30); Chloride 102 mmol/L (98-107); Estimated CRCL calculation 85 ml/min; Estimated Glomerular Filt Rate > 60; Glucose 137 mg/dL (65-110); Potassium 3.8 mmol/L (3.4-5.0); Sodium 137 mmol/L (137-145); Total Protein 7.1 g/dL (6.3-8.2)
[2025-01-04 03:31] LABS: Troponin I < 0.012 ng/mL (0.000-0.034)
[2025-01-04 03:33] LABS: BEDSIDEPREGUCG Negative (Negative)
[2025-01-04 03:39] LABS: Add Urine Microscopic? YES; Appearance Urine Cloudy (Clear); Glucose Urine UA Negative (Negative); Leukocyte Esterase Ur Trace LEU/UL (Negative); Nitrate Urine Negative (Negative); Non Pathogenic Casts 0-2; Specific Grav Ur 1.019 (1.001-1.035)
[2025-01-04 04:09] LABS: Lipase 7910 U/L (23-300)
[2025-01-04] MEDS: SODIUM CHLORIDE 0.9% IV 1,000 ML 999 ML IV CONT (05:07)
--- NOTE | 2025-01-04 05:30 | P.HP_ITS ---
H&P: [facility] History of Present Illness Date/Time: 01/04/25 05:30 Chief Complaint: Abdominal pain Narrative: This is a very pleasant 49-year-old female patient with history of migraines and previous pancreatitis who comes to the emergency room with complaints of abdominal pain. The patient notes that she started to have mild abdominal pain last evening. She last ate at 7:30 last evening. She woke up throughout the evening with acute abdominal pain that was worsening and associated nausea and sweats. She denies vomiting diarrhea. No fevers. Patient states her pain is in the upper part of her abdomen will way across from the left side to the right. It is sharp in nature and she cannot identify anything that exacerbates or alleviates pain. For history pancreatitis is remote with the most recent flare-up being approximately 8-10 years ago. She states that many years ago she had her initial flare up that caused her to have a procedure to dilate her ducts and she was told she had ?small ducts. She has never had stent placement. It was years later that she had her set her up and at that point they decided to do nothing as her pain resolved and it had been such a long amount of time during her flare ups that the GI doctor was not inclined to do anything regarding the pain. She does not drink alcohol, does not smoke does not use any drugs. She denies any chest pain, dyspnea. Patient states she takes no home medications. In the emergency room patient's vital signs were performed normal. EKG showing normal sinus rhythm 81 beats per minute. CBC and metabolic panel are unremarkable. She has a normal troponin. LFTs and bilirubin are normal. Urinalysis showing trace ketones and trace leuk esterase. Lipase returned [place] 7910. CT abdomen pelvis was ordered and was read by stat read as no acute findings although the ER provider believes that she does see signs of stranding near the pancreas. Will appreciate over-read by our radiologist today. As patient does have pain all across the epigastrium and upper quadrants a right upper quadrant ultrasound is ordered as is a 3 hour troponin for full ACS rule out. She is being admitted in the current setting for presumed pancreatitis with treatment of IV fluids, pain medications and monitoring with GI consult. Review of Systems Review of Systems: All systems reviewed & are unremarkable except as noted in HPI and below PMFSH Past Medical History Medical History (Updated 01/04/25 @ 05:39 by SHAZIA Muse) Abdominal pain Pancreatitis Migraine Surgical History Surgical History History of pancreatic surgery Family History Family History Father COPD (chronic obstructive pulmonary disease) Asthma Cerebrovascular accident Diabetes mellitus Hypertension Malignant neoplasm of prostate Mother MVP (mitral valve prolapse) Social History Social History Smoking status: Never smoker Second hand tobacco smoke exposure: No Alcohol intake: former Alcohol use details: does not use any more Substance use: never Substance use type: does not use Gender identity (if verbalized by the patient): Female Spiritual care concerns: No Meds Home Medications and Allergies Home Medications ?Medication ?Instructions ?Recorded ?Confirmed ?Type No Home Medications 11/08/23 08/24/24 History Allergies Allergy/AdvReac Type Severity Reaction Status Date / Time sumatriptan Allergy Mild Agitated Verified 10/05/24 09:03 SUMATRIPTAN SUCCINATE Allergy Severe DIFFICULTY Uncoded 10/05/24 09:03 BREATHING Vital Signs Vital Signs - 24 hr 01/04/25 02:30 Temperature 97.8 F Pulse Rate 91 Respiratory Rate 16 Blood Pressure 131/79 Pulse Oximetry 100 Oxygen Delivery Room Air Exam Const: General: comfortable and no acute distress Other: obese female pt lying supine at this time in no acute distress. HENMT: Face/Nose/Sinus: Normal nares present Mouth: Yes moist mucous membranes Eyes: General: appearance normal, both eyes and all related structures Sclera: sclerae normal Pupils: Equal, round and reactive pupils present EOM: EOMs intact bilaterally Neck: Neck: supple and no JVD Lymphatic: lymphadenopathy not noted Resp: Effort & Inspection: normal respiratory effort Auscultation: clear to auscultation bilaterally Cardio: Rate: regular rate Rhythm: regular rhythm Heart sounds: no gallops, no murmurs and no rubs GI: Inspection: non-distended GI Palp: Yes Soft to palpation and Yes Tenderness to palpation present (GI) (RUQ, LUQ, Epigastric) Auscultation: normal bowel sounds Skin: General skin exam: normal color, no rashes or lesions noted and no erythema Lesions: no lesions noted Rashes: no rashes noted Wounds: no wounds Neuro: General: gait normal Speech: normal speech Motor exam (neuro): 5/5 motor strength present throughout and Normal motor muscle tone present throughout Sensory Exam: normal sensation Extrem: General: normal to inspection, no edema and no pedal edema Other: FROM of all extremities. Psych: Mental Status: mental status grossly normal Affect: normal affect H&P: Results Labs Labs: Short CBC 01/04/25 Range/Units 02:36 WBC 9.5 (4.5-10.0) K/mm3 Hgb 13.6 (12.0-15.0) g/dL Hct 43.1 (37.0-47.0) % Plt Count 281 (150-375) k/mm3 BMP 01/04/25 03:01 Sodium 137 Potassium 3.8 Chloride 102 Carbon Dioxide 25 BUN 10 D Creatinine 0.88 Glucose 137 H Calcium 9.2 Cardiac Enzymes 01/04/25 Range/Units 03:01 Troponin I < 0.012 (0.000-0.034) ng/mL Liver Function 01/04/25 Range/Units 03:01 Total Bilirubin 0.4 (0.2-1.3) mg/dL AST 21 (14-36) U/L ALT 24 (6-35) U/L Alkaline Phosphatase 110 (38-126) U/L Albumin 4.2 (3.5-5.1) g/dL Urine 01/04/25 Range/Units 03:29 Urine Color Yellow (Yellow) Urine Appearance Cloudy H (Clear) Urine pH 5.5 (5.0-9.0) Ur Specific [place] 1.019 (1.001-1.035) Urine Protein Trace (Negative) mg/dL Urine Glucose (UA) Negative (Negative) mg/dL Assessment and Plan Assessment and plan (1) Abdominal pain: Code(s): R10.9 - Unspecified abdominal pain Status: Acute Assessment and Plan: * Presumed pancreatitis in the setting of lipase being 7910 and presentation and physical exam. * CT scan as read by stat read not suspicious for pancreatitis, however as patient has history and her presentation and workup is otherwise suspicious she will be treated as though pancreatitis is present. * Pain control with IV morphine 4 mg q.2 hours p.r.n. pain * IV fluids of normal saline at 100 mL/hour ordered. * Antiemetics of Zofran 4 mg IV push q.4 hours ordered for nausea. * Right upper quadrant ultrasound is ordered. * Will consult GI. * Fasting lipid panel ordered. Quality VTE Prophylaxis VTE prophylaxis: mechanical ordered Hospitalist MIPS Advance Care Plan I have confirmed that the patient's Advanced Care Plan is present, code status is documented, or surrogate decision maker is listed in patient medical record.: Yes Medication Reconciliation I have utilized all available resources to obtain, update and review the patients current medications (includes all prescriptions, OTC, herbals, cannabis, and nutritional supplements).: Yes
--- NOTE | 2025-01-04 06:00 | ECG_ITS ---
Test Date: 2025-01-04 06:07:17 Measurements Intervals [place] Rate: 88 P: 28 ND: 169 QRS: 37 QRSD: 75 T: 4 QT: 358 QTc: 434 Interpretive Statements SINUS RHYTHM POSSIBLE LEFT ATRIAL ENLARGEMENT [-0.1mV P-WAVE IN V1/V2] Compared to ECG 01/04/2025 02:37:00 No significant changes Electronically Signed On 01-04-2025 16:42:15 CDT by Maximilian Baugh
[2025-01-04] MEDS: SODIUM CHLORIDE 0.9% IV 1,000 ML 100 ML IV CONT (06:07)
[2025-01-04 06:27] LABS: Cholesterol 196 mg/dL (0-200); HDL Direct 39 mg/dL; Triglycerides 187 mg/dL (<150)
[2025-01-04 06:38] LABS: Troponin I < 0.012 ng/mL (0.000-0.034)
--- NOTE | 2025-01-04 08:00 | ADMGEN ---
This patient, Clair Moreno, was admitted to 2 Medical Room 258-. Patient/family oriented to hospital policies and general routines including ID bracelet, bed and alarms, visiting hours, pain management, procedures, bathroom and other care routines, personal items, smoking policy, room service/diet, and visiting hours. Information on how to activate the Rapid Response Team has been discussed. Patient/Family are encouraged to report perceived risks to care and to ask questions if they do not understand what they are told or what they should do.
[2025-01-04] MEDS: LACTATED RINGERS 1,000 ML 150 ML IV CONT ×2 (13:02→19:49)
--- NOTE | 2025-01-04 15:49 | P.CONGI_ITS ---
Assessment and Plan Assessment and plan (1) Acute pancreatitis: Code(s): K85.90 - Acute pancreatitis without necrosis or infection, unspecified Status: Acute Assessment and Plan: This patient presents with acute pancreatitis of unclear etiology. We've ruled out common causes, as gallstones are absent, she denies alcohol ingestion, and her calcium and triglyceride levels are normal. Additionally, there are no medications identified that are typically associated with pancreatitis. Her historical description, particularly the 2 ducts and small draining orifice from her previous workup, highly suggests pancreas divisum. This anatomical variation can be a cause of acute pancreatitis. To better define her pancreatic anatomy and confirm this suspicion, we will obtain an MRCP. Regarding management, we will initiate Lactated Ringer's solution at a rate of 1.5 mL/kg/hour, which for her weight translates to 150 mL/hour. Given her hematocrit is above 42%, which can correlate with an increased risk of developing necrotizing pancreatitis, we will closely monitor her with sequential hematocrits while maintaining this hydration rate. If she tolerates it, we plan to reintroduce early feeding with a full liquid diet tomorrow. GI Consult Note Consult date/time: 01/04/25 15:49 Reason for consult: Acute pancreatitis HPI: Clair Moreno is a 49-year-old female with a long-standing history of upper GI issues. Her problems began at age 22 with multiple upper GI symptoms including nausea, fullness, and epigastric pain. Workup at that time suggested a pancreatic anomaly with 2 ducts present and a small draining orifice. She reports undergoing a successful dilation procedure at [facility], which resolved her symptoms completely for approximately 15 years. At age 37, she experienced her first episode of acute pancreatitis, treated at this hospital. Post-discharge, she returned to [facility], where she was informed the previous procedure was no longer accepted practice and no medical or surgical treatment could prevent recurrent pancreatitis. She remained well until yesterday, when she developed increasingly worsening epigastric pain radiating to her back and both upper quadrants, associated with nausea and vomiting. She was hospitalized, and her labs revealed: WBC 9.5, Hct 43.1, Plt 281, AST 21, ALT 24, Na 137, K 3.8, Cr 0.88, Trig 187, Ca 9.2, and a significantly elevated lipase of 7910 U/L. Her CT scan at admission showed a normal pancreas and no acute processes. Review of Systems 2 Review of Systems: All systems reviewed & are unremarkable except as noted in HPI and below [facility] Past Medical History Medical History (Updated 01/04/25 @ 05:39 by SHAZIA Muse) Abdominal pain Pancreatitis Migraine Surgical History Surgical History History of pancreatic surgery Family History Family History Father COPD (chronic obstructive pulmonary disease) Asthma Cerebrovascular accident Diabetes mellitus Hypertension Malignant neoplasm of prostate Mother MVP (mitral valve prolapse) Social History Social History Smoking status: Never smoker Second hand tobacco smoke exposure: No Alcohol intake: never Alcohol use details: does not use any more Substance use: never Substance use type: does not use Do You Feel Safe in your Home?: Yes Lack of Transportation: No Lack of Food: Never True Current Housing: I Have Housing Concerned About Future Housing: No Difficulty Paying Gas/Electric Bills: No Difficulty Paying for Meds: No Currently Unemployed: No Education: High School Diploma/GED Difficulty w/ Childcare or Family Care: No Gender identity (if verbalized by the patient): Female Spiritual care concerns: No Meds Home Medications and Allergies Home Medications ?Medication ?Instructions ?Recorded ?Confirmed ?Type No Home Medications 11/08/23 01/04/25 History Allergies Allergy/AdvReac Type Severity Reaction Status Date / Time sumatriptan Allergy Mild Agitated Verified 01/04/25 09:19 SUMATRIPTAN SUCCINATE Allergy Severe DIFFICULTY Uncoded 01/04/25 09:19 BREATHING Vital Signs Vital Signs - 24 hr 01/04/25 02:30 01/04/25 06:02 01/04/25 06:32 Temperature 97.8 F Pulse Rate 91 89 88 Respiratory Rate 16 11 L 12 Blood Pressure 131/79 145/80 H 137/81 Pulse Oximetry 100 98 98 Oxygen Delivery Room Air 01/04/25 07:02 01/04/25 07:45 01/04/25 08:05 Temperature 97.0 F L Pulse Rate 88 87 82 Respiratory Rate 12 18 12 Blood Pressure 132/92 H 135/86 139/84 Pulse Oximetry 98 100 100 Oxygen Delivery 01/04/25 14:00 Temperature 97.3 F L Pulse Rate 96 Respiratory Rate 14 Blood Pressure 127/75 Pulse Oximetry 96 Oxygen Delivery Exam 2 Narrative: GENERAL: Well-appearing, well-nourished, and in no acute distress. HEAD: Normocephalic, atraumatic. EYES: Non injected, non icteric ENT: Nares clear, no rhinorrhea or epistaxis. Gross auditory acuity intact. NECK: Supple. No meningismus. CHEST: Speaking in full sentences. No respiratory distress. HEART: Regular rate and rhythm. . ABDOMEN: Soft, nondistended. No rigidity or guarding. Not peritoneal EXTREMITIES: Normal range of motion. No lower extremity edema. SKIN: Warm, dry, no rash. NEURO: No focal deficits. Alert and oriented. Answering questions. Following commands. Normal speech without aphasia or dysarthria. PSYCH: Normal mood and affect. Results Labs 01/04/25 02:36 01/04/25 03:01 Labs: Short CBC 01/04/25 Range/Units 02:36 WBC 9.5 (4.5-10.0) K/mm3 Hgb 13.6 (12.0-15.0) g/dL Hct 43.1 (37.0-47.0) % Plt Count 281 (150-375) k/mm3 BMP 01/04/25 03:01 Sodium 137 Potassium 3.8 Chloride 102 Carbon Dioxide 25 BUN 10 D Creatinine 0.88 Glucose 137 H Calcium 9.2 Cardiac Enzymes 01/04/25 01/04/25 Range/Units 03:01 06:09 Troponin I < 0.012 < 0.012 (0.000-0.034) ng/mL Liver Function 01/04/25 Range/Units 03:01 Total Bilirubin 0.4 (0.2-1.3) mg/dL AST 21 (14-36) U/L ALT 24 (6-35) U/L Alkaline Phosphatase 110 (38-126) U/L Albumin 4.2 (3.5-5.1) g/dL Urine 01/04/25 Range/Units 03:29 Urine Color Yellow (Yellow) Urine Appearance Cloudy H (Clear) Urine pH 5.5 (5.0-9.0) Ur Specific [place] 1.019 (1.001-1.035) Urine Protein Trace (Negative) mg/dL Urine Glucose (UA) Negative (Negative) mg/dL
[2025-01-04 18:23] LABS: Hematocrit 38.3 % (37.0-47.0); Hemoglobin 12.4 g/dL (12.0-15.0)
[2025-01-04 18:38] LABS: Blood Urea Nitrogen 8 mg/dL (7-17); Creatine Kinase 40 U/L (30-135)
[2025-01-04 22:06] LABS: Hematocrit 37.3 % (37.0-47.0); Hemoglobin 11.8 g/dL (12.0-15.0)
[2025-01-04 22:17] LABS: Blood Urea Nitrogen 8 mg/dL (7-17); Creatine Kinase 42 U/L (30-135)
[2025-01-05] MEDS: LACTATED RINGERS 1,000 ML 150 ML IV CONT ×2 (02:41→09:12)
[2025-01-05 05:27] LABS: Hematocrit 37.6 % (37.0-47.0); Hemoglobin 11.9 g/dL (12.0-15.0); Immature Granulocyte Percent A 0.3 % (0-0.5); Lymphocytes Absolute Auto 1.06 K/mm3 (0.9-3.2); Mean Corpuscular HGB Conc 31.6 g/dl (32-36); Mean Corpuscular Hemoglobin 27.9 pg (26-34); Mean Corpuscular Volume 88.1 fl (80-100); Nucleated Red Blood Cells Absolute Auto 0.000 K/mm3 (0.0-0.012); Nucleated Red Blood Cells Perc 0.0 % (0.0-0.2); Platelet Count Result 253 k/mm3 (150-375); Red Blood Count 4.27 M/mm3 (4.2-5.4); White Blood Count 6.5 K/mm3 (4.5-10.0)
[2025-01-05 05:32] VITALS: BP 135/81; PULSE 96; RESP 16; TEMP 36.6; O2SAT 96
[2025-01-05 05:51] LABS: Alanine Aminotransferase 20 U/L (6-35); Albumin Level 3.6 g/dL (3.5-5.1); Alkaline Phosphatase 85 U/L (38-126); Anion Gap 7 mmol/L (4-12); Aspartate Amino Transferase 20 U/L (14-36); Bilirubin,Total 0.6 mg/dL (0.2-1.3); Blood Urea Nitrogen 7 mg/dL (7-17); Calcium 8.4 mg/dL (8.4-10.2); Carbon Dioxide 24 mmol/L (22-30); Chloride 106 mmol/L (98-107); Estimated CRCL calculation 103 ml/min; Estimated Glomerular Filt Rate > 60; Glucose 97 mg/dL (65-110); Potassium 3.8 mmol/L (3.4-5.0); Sodium 137 mmol/L (137-145); Total Protein 6.2 g/dL (6.3-8.2)
--- NOTE | 2025-01-05 07:04 | P.PNIM_ITS ---
Progress Note: A&P Assessment and Plan (1) Acute pancreatitis: Code(s): K85.90 - Acute pancreatitis without necrosis or infection, unspecified Status: Acute Assessment and Plan: * Presumed pancreatitis in the setting of lipase being 7910 and presentation and physical exam. * CT scan as read by stat read not suspicious for pancreatitis, however as patient has history and her presentation and workup is otherwise suspicious she will be treated as though pancreatitis is present. * Pain control with IV morphine 4 mg q.2 hours p.r.n. pain * Started on IV fluids of normal saline at 100 mL/hour * Antiemetics of Zofran 4 mg IV push q.4 hours ordered for nausea. * Right upper quadrant ultrasound is ordered. * Diffuse fatty infiltration of the liver. * Fasting lipid panel * TG 187, Cholesterol 196, LDL 123, HDL 39 * GI consult * Obtain MRCP to assess small ducts and draining orifice * LR @ 1.5mL/kg/hour * Monitor sequential H&Hs * Advance diet as tolerated, full liquid today (2) Abdominal pain: Code(s): R10.9 - Unspecified abdominal pain Status: Acute Assessment and Plan: * Likely secondary to problem #1 Subjective Date/time seen: 01/05/25 07:04 Interval history: 49-year-old female patient with history of migraines and previous pancreatitis who comes to the emergency room with complaints of abdominal pain. 01/05/2025 Review of Systems Review of Systems: All systems reviewed & are unremarkable except as noted in HPI and below Exam Const: General: comfortable and no acute distress Other: obese female pt lying supine at this time in no acute distress. HENMT: Face/Nose/Sinus: Normal nares present Mouth: Yes moist mucous membranes Eyes: General: appearance normal, both eyes and all related structures Sclera: sclerae normal Pupils: Equal, round and reactive pupils present EOM: EOMs intact bilaterally Neck: Neck: supple and no JVD Lymphatic: lymphadenopathy not noted Resp: Effort & Inspection: normal respiratory effort Auscultation: clear to auscultation bilaterally Cardio: Rate: regular rate Rhythm: regular rhythm Heart sounds: no gallops, no murmurs and no rubs GI: Inspection: non-distended Auscultation: normal bowel sounds Skin: General skin exam: normal color, no rashes or lesions noted, no erythema, No lesion and No rashes Lesions: no lesions noted Rashes: no rashes noted Wounds: no wounds Neuro: General: gait normal Cranial nerves: Yes Equal, round and reactive pupils present Speech: normal speech Motor exam (neuro): 5/5 motor strength present throughout and Normal motor muscle tone present throughout Sensory Exam: normal sensation Extrem: General: normal to inspection, no edema and no pedal edema Other: FROM of all extremities. Psych: Mental Status: mental status grossly normal Affect: normal affect Objective Data Vital Signs Vital Signs: Vital Signs - 24 hr 01/04/25 07:45 01/04/25 08:05 01/04/25 14:00 Temperature 97.0 F L 97.3 F L Pulse Rate 87 82 96 Respiratory Rate 18 12 14 Blood Pressure 135/86 139/84 127/75 Pulse Oximetry 100 100 96 Oxygen Delivery Fraction of Inspired Oxygen 01/04/25 20:31 01/04/25 20:45 01/05/25 05:32 Temperature 97.6 F 97.9 F Pulse Rate 96 97 96 Respiratory Rate 12 20 16 Blood Pressure 136/85 135/81 Pulse Oximetry 97 96 96 Oxygen Delivery Room Air Fraction of Inspired Oxygen 21 Intake/Output Intake/Output: Intake & Output 01/02/25 01/03/25 01/04/25 01/05/25 23:59 23:59 23:59 23:59 Intake Total 1999 999 Balance 1999 1000 Meds/Results Medications: Active Medications Generic Name Dose Route Start Last Admin Trade Name Freq PRN Reason Stop Dose Admin Acetaminophen 650 mg 01/04/25 05:13 Acetaminophen 325 Mg Tablet PO Q4H PRN Mild Pain (1-3) or Fever Lactated Ringer's 1,000 mls @ 150 mls/hr 01/04/25 12:25 01/05/25 02:41 Lr - Lactated Ringers Iv IV CONT 150 mls/hr .Q6H40M BUZZ Administration Morphine Sulfate 4 mg 01/04/25 05:13 01/04/25 09:57 Morphine Sulfate (*Crx) 4 Mg/Ml Inj IV PUSH 4 mg Q2H PRN Administration Pain Rated 7-10 Ondansetron HCl 4 mg 01/04/25 05:13 01/04/25 15:25 Ondansetron Inj 4 Mg/2 Ml Vial IV PUSH 4 mg Q4H PRN Administration Nausea Radiology Results: ITS Impressions Chest/Abdomen/Pelvis CT 01/04/25 05:31 Impression: No acute abnormality. Small nonobstructing right renal stones. Abdomen Ultrasound 01/04/25 08:04 Impression: Diffuse fatty infiltration of the liver. Labs Labs: Laboratory Results - last 24 hr 01/04/25 01/04/25 01/05/25 17:54 22:00 05:17 WBC 6.5 RBC 4.27 Hgb 12.4 11.8 L 11.9 L Hct 38.3 37.3 37.6 MCV 88.1 MCH 27.9 MCHC 31.6 L RDW 13.4 Plt Count 253 MPV 11.2 H Immature Gran % (Auto) 0.3 Neut % (Auto) 74.0 H Lymph % (Auto) 16.3 L [place] % (Auto) 7.5 Eos % (Auto) 1.7 Baso % (Auto) 0.2 Lymph # (Auto) 1.06 [place] # (Auto) 0.5 Eos # (Auto) 0.1 Baso # (Auto) 0.0 Abs Immat Gran (auto) 0.02 Absolute Neuts (auto) 4.8 Absolute Nucleated RBC 0.000 Nucleated RBC % 0.0 Sodium 137 Potassium 3.8 Chloride 106 Carbon Dioxide 24 Anion Gap 7 BUN 8 8 7 Creatinine 0.72 Estim Creat Clear Calc 103 Estimated GFR > 60 Glucose 97 Calcium 8.4 Total Bilirubin 0.6 AST 20 ALT 20 Alkaline Phosphatase 85 Total Creatine Kinase 40 42 Total Protein 6.2 L Albumin 3.6 Quality VTE Prophylaxis VTE prophylaxis: mechanical ordered
[2025-01-05 08:32] VITALS: RESP 16; O2SAT 96
--- NOTE | 2025-01-05 10:18 | WPDGIPROGNO ---
Progress Note: A&P Assessment and Plan (1) Acute pancreatitis: Code(s): K85.90 - Acute pancreatitis without necrosis or infection, unspecified Status: Acute Assessment and Plan: The patient had a comfortable night, experiencing no further episodes of abdominal pain. She is currently asymptomatic. We plan for discharge home today, provided she tolerates a regular diet at lunchtime. Regarding her history of recurrent acute pancreatitis, pancreas divisum remains the most likely etiology, as discussed yesterday. Unfortunately, due to the holiday, her scheduled MRI/MRCP could not be performed today. 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 Subjective Date/time seen: 01/05/25 10:18 Objective Data Vital Signs Vital Signs: Vital Signs - 24 hr 01/04/25 14:00 01/04/25 20:31 01/04/25 20:45 Temperature 97.3 F L 97.6 F Pulse Rate 96 96 97 Respiratory Rate 14 12 20 Blood Pressure 127/75 136/85 Pulse Oximetry 96 97 96 Oxygen Delivery Room Air Fraction of Inspired Oxygen 21 01/05/25 05:32 01/05/25 08:32 Temperature 97.9 F Pulse Rate 96 Respiratory Rate 16 16 Blood Pressure 135/81 Pulse Oximetry 96 96 Oxygen Delivery Room Air Fraction of Inspired Oxygen Intake/Output Intake/Output: Intake & Output 01/02/25 01/03/25 01/04/25 01/05/25 23:59 23:59 23:59 23:59 Intake Total 1999 1977.5 Balance 1999 1977.5 Meds/Results Medications: Active Medications Generic Name Dose Route Start Last Admin Trade Name Freq PRN Reason Stop Dose Admin Acetaminophen 650 mg 01/04/25 05:13 Acetaminophen 325 Mg Tablet PO Q4H PRN Mild Pain (1-3) or Fever Lactated Ringer's 1,000 mls @ 150 mls/hr 01/04/25 12:25 01/05/25 09:12 Lr - Lactated Ringers Iv IV CONT 150 mls/hr .Q6H40M BUZZ Administration Morphine Sulfate 4 mg 01/04/25 05:13 01/04/25 09:57 Morphine Sulfate (*Crx) 4 Mg/Ml Inj IV PUSH 4 mg Q2H PRN Administration Pain Rated 7-10 Ondansetron HCl 4 mg 01/04/25 05:13 01/04/25 15:25 Ondansetron Inj 4 Mg/2 Ml Vial IV PUSH 4 mg Q4H PRN Administration Nausea Radiology Results: ITS Impressions Chest/Abdomen/Pelvis CT 01/04/25 05:31 Impression: No acute abnormality. Small nonobstructing right renal stones. Abdomen Ultrasound 01/04/25 08:04 Impression: Diffuse fatty infiltration of the liver. Labs Labs: Laboratory Results - last 24 hr 01/04/25 01/04/25 01/05/25 17:54 22:00 05:17 WBC 6.5 RBC 4.27 Hgb 12.4 11.8 L 11.9 L Hct 38.3 37.3 37.6 MCV 88.1 MCH 27.9 MCHC 31.6 L RDW 13.4 Plt Count 253 MPV 11.2 H Immature Gran % (Auto) 0.3 Neut % (Auto) 74.0 H Lymph % (Auto) 16.3 L [place] % (Auto) 7.5 Eos % (Auto) 1.7 Baso % (Auto) 0.2 Lymph # (Auto) 1.06 [place] # (Auto) 0.5 Eos # (Auto) 0.1 Baso # (Auto) 0.0 Abs Immat Gran (auto) 0.02 Absolute Neuts (auto) 4.8 Absolute Nucleated RBC 0.000 Nucleated RBC % 0.0 Sodium 137 Potassium 3.8 Chloride 106 Carbon Dioxide 24 Anion Gap 7 BUN 8 8 7 Creatinine 0.72 Estim Creat Clear Calc 103 Estimated GFR > 60 Glucose 97 Calcium 8.4 Total Bilirubin 0.6 AST 20 ALT 20 Alkaline Phosphatase 85 Total Creatine Kinase 40 42 Total Protein 6.2 L Albumin 3.6
[2025-01-05 14:00] VITALS: BP 149/85; PULSE 91; RESP 18; TEMP 36.2; O2SAT 100
--- NOTE | 2025-01-05 14:01 | PM.DS ---
DS: Admitting Diagnosis Discharge Date 01/05/2025 Admitting Diagnosis Pancreatitis DS: Discharge Diagnosis Discharge Diagnosis (1) Acute pancreatitis: Code(s): K85.90 - Acute pancreatitis without necrosis or infection, unspecified Status: Acute (2) Abdominal pain: Code(s): R10.9 - Unspecified abdominal pain Status: Acute DS: Summary Hospital Course Reason for hospitalization: Abdominal pain Hospital Course: This is a very pleasant 49-year-old female patient with history of migraines and previous pancreatitis who comes to the emergency room with complaints of abdominal pain. The patient notes that she started to have mild abdominal pain last evening. She last ate at 7:30 last evening. She woke up throughout the evening with acute abdominal pain that was worsening and associated nausea and sweats. She denies vomiting diarrhea. No fevers. Patient states her pain is in the upper part of her abdomen will way across from the left side to the right. It is sharp in nature and she cannot identify anything that exacerbates or alleviates pain. For history pancreatitis is remote with the most recent flare-up being approximately 8-10 years ago. She states that many years ago she had her initial flare up that caused her to have a procedure to dilate her ducts and she was told she had ?small ducts. She has never had stent placement. It was years later that she had her set her up and at that point they decided to do nothing as her pain resolved and it had been such a long amount of time during her flare ups that the GI doctor was not inclined to do anything regarding the pain. She does not drink alcohol, does not smoke does not use any drugs. She denies any chest pain, dyspnea. Patient states she takes no home medications. In the emergency room patient's vital signs were performed normal. EKG showing normal sinus rhythm 81 beats per minute. CBC and metabolic panel are unremarkable. She has a normal troponin. LFTs and bilirubin are normal. Urinalysis showing trace ketones and trace leuk esterase. Lipase returned at 7910. CT abdomen pelvis was ordered and was read by stat read as no acute findings although the ER provider believes that she does see signs of stranding near the pancreas. Will appreciate over-read by our radiologist today. As patient does have pain all across the epigastrium and upper quadrants a right upper quadrant ultrasound is ordered as is a 3 hour troponin for full ACS rule out. She is being admitted in the current setting for presumed pancreatitis with treatment of IV fluids, pain medications and monitoring with GI consult. Gastroenterology was consulted regarding acute pancreatitis. Agree that next likely course is to obtain an MRCP. LR solution was initiated at a rate of 1.5 mL/kg/hour. H&Hs were monitored throughout hospitalization. On 01/05, unfortunately given the holiday/weekend, the patient's MRCP would not be able to be performed today. I discussed her case with Gastroenterology again in the agreed that the patient can be safely discharged and follow-up with the GI scheduling lab on Wednesday in order to obtain an MRCP early next week. Patient is amenable to this plan. She is otherwise hemodynamically stable and does not require further hospitalization at this time. Plan for discharge home. I have given the patient appropriate follow-up information regarding the scheduling office with GI. Status at Discharge Functional status at discharge: independent ambulation Overall status at discharge: patient is back to baseline Time Spent with Patient Time attestation: Total time spent providing and/or coordinating discharge services: 41 Exam Const: Other: obese female pt lying supine at this time in no acute distress. Extrem: Other: FROM of all extremities. DS: Data Data Completed and Pending Labs on day of discharge: Labs from last 24 hours 01/05/25 01/04/25 01/04/25 05:17 22:00 17:54 WBC 6.5 RBC 4.27 Hgb 11.9 L 11.8 L 12.4 Hct 37.6 37.3 38.3 MCV 88.1 MCH 27.9 MCHC 31.6 L RDW 13.4 Plt Count 253 MPV 11.2 H Immature Gran % (Auto) 0.3 Neut % (Auto) 74.0 H Lymph % (Auto) 16.3 L [place] % (Auto) 7.5 Eos % (Auto) 1.7 Baso % (Auto) 0.2 Lymph # (Auto) 1.06 [place] # (Auto) 0.5 Eos # (Auto) 0.1 Baso # (Auto) 0.0 Abs Immat Gran (auto) 0.02 Absolute Neuts (auto) 4.8 Absolute Nucleated RBC 0.000 Nucleated RBC % 0.0 Sodium 137 Potassium 3.8 Chloride 106 Carbon Dioxide 24 Anion Gap 7 BUN 7 8 8 Creatinine 0.72 Estim Creat Clear Calc 103 Estimated GFR > 60 Glucose 97 Calcium 8.4 Total Bilirubin 0.6 AST 20 ALT 20 Alkaline Phosphatase 85 Total Creatine Kinase 42 40 Total Protein 6.2 L Albumin 3.6 Discharge Plan Discharge Attending physician on discharge: Ruba Fowler Consulting providers: Maxim Antoine Discharging Clinician: Maxim Antoine Anticipated Discharge Date/Time: 01/05/25 13:59 Patient Disposition: Home Activity: as tolerated Diet: as tolerated Discharge Instructions: Discharge disposition: Stable Take medications as prescribed Monitor blood pressures Take caution while standing, rising, or moving Change positions slowly taking a break between each position change If you standing feel dizzy sit back down and take a break Encouraged to continue with yearly vaccinations Return to the emergency department if he developed sudden shortness of breath, chest pain, nausea, vomiting, upset stomach or intractable diarrhea Return to the emergency department if you develop fever greater than 101.5 Follow-up with the primary care physician within 1-2 weeks Call the GI scheduling office at [phone]. Call their office tomorrow, if they are not open, then call them early on Wednesday to schedule an MRCP. Thank you for [facility] for your healthcare needs Patient Instructions: Antibiotic Form Patient Language: Indonesian Stand Alone Forms: General Discharge Information Follow-up/Referrals: Eulalia Kuo MD [Primary Care Provider] - Dinesh Roy MD [Physician] - Discharge Medications: Continued No Home Medications Date of admission: 01/04/25 05:13 Primary Care Provider: Eulalia Kuo Admitting Provider: Lon Thomason Attending physician on admission: Lon Thomason Condition: Stable Quality VTE Prophylaxis VTE prophylaxis: mechanical ordered
== END 2025-01-05 14:50 | disposition home or self-care (01) ==
LOC: ANHED 05:12 → ANH2MED 08:06 → ANH3MEDSUR 01-08 07:05
PROVIDERS: Internal Medicine Gastroenterology; Nurse Practitioner Adult Health; Admitting Provider Internal Medicine; Emergency Provider Student in an Organized Health Care Education/Training Program; PCP Family Medicine; Visit Provider Family Medicine
DX: K85.90 Acute pancreatitis without necrosis or infection, unspecified (principal); G43.909 Migraine, unspecified, not intractable, without status migrainosus
CPT/HCPCS: 36415; 71260; 74177; 76705; 80053; 80061; 81001; 81025; 82550; 83690; 84484; 84520; 85014; 85018; 85025; 93005; 96361; 96374; 96375; 96376; 99285; G0378; J2270; J2405; J7030; J7120; Q9967

== ENCOUNTER 2025-01-18 11:47 | Outpatient (CLI) | payer OTHER, SELFPAY ==
--- NOTE | ~2025-01-18 | MR_ITS ---
EXAMINATION: MR MRCP wo/w con/w 3D wo ind DATE: 01/18/2025 13:02 INDICATION: Acute pancreatitis TECHNIQUE: Magnetic resonance imaging (MRI) of the abdomen was performed without and with 20 mL Multi home intravenous contrast. Sequences included coronal T2-weighted SS-FSE, coronal T2-weighted FS SS- FSE, coronal T2-weighted FS FIESTA, axial T2-weighted FS FIESTA, axial T2-weighted FIESTA, sagittal T 2-weighted SS-FSE, axial T1-weighted dual-echo FSPGR, axial T2-weighted SS-FSE, axial T1-weighted LAV A, axial T2-weighted STIR FSE. Thick-slab T2-weighted FRFSE-XL images were obtained for magnetic reso nance cholangiopancreatography (MRCP). Rotating maximum intensity projection 3-D reconstructions of t he volumetric data were created by the technologist. Postcontrast sequences included a time course of axial T1-weighted LAVA. COMPARISON: CT dated 01/04/2025 and MRI dated 03/09/2020 FINDINGS: ABDOMEN MRI: Heart size is normal. No pericardial or pleural effusion. Diffuse hepatic steatosis. No significant i nterval change since 2019 and a 2.0 cm T2 hyperintense lesion in the right hepatic lobe with lobular margins and which demonstrates peripheral discontiguous puddling of contrast which fills in on delaye d imaging consistent with a hemangioma. Gallbladder, spleen and bilateral adrenal glands are normal. There are bilateral T2 hyperintense nonenhancing bilateral renal cysts, the largest on the right tosin uring 1.1 cm. Pancreas appears normal with homogeneous parenchymal enhancement and no parenchymal or peripancreatic edema/fluid to suggest recurrent acute pancreatitis. Visualized portions of bowels are unremarkable with no obstruction. No pathologically enlarged abdominal lymphadenopathy. Bones are un remarkable with normal marrow signal throughout. ABDOMEN MRCP: No intrahepatic biliary ductal dilation. The common bile duct measures up to 4 mm in ma ximal diameter which is normal, tapering smoothly in the distal duct with no evident filling defects to suggest choledocholithiasis. Incidentally noted is pancreas divisum with the main pancreatic duct draining separately through the minor papilla. IMPRESSION: 1. Normal pancreas but with normal anatomic variation pancreas divisum with the main pancreatic duct draining separately into the minor papilla. 2. Normal gallbladder, common bile duct and biliary tree with no evident cholelithiasis/choledocholit hiasis. Reviewed, dictated and finalized at location A. IMPRESSION: 1. Normal pancreas but with normal anatomic variation pancreas divisum with the main pancreatic duct draining separately into the minor papilla. 2. Normal gallbladder, common bile duct and biliary tree with no evident cholel ithiasis/choledocholithiasis.
== END 2025-01-18 11:48 | disposition home or self-care (01) ==
PROVIDERS: PCP Family Medicine; Visit Provider Internal Medicine Gastroenterology
DX: K85.90 Acute pancreatitis without necrosis or infection, unspecified (principal)
CPT/HCPCS: 74183; 76376; A9577

== ENCOUNTER 2025-04-06 02:46 | Day surgery (SDC) | payer OTHER, SELFPAY ==
[2025-03-29 10:54] VITALS: BMI 38.7
--- NOTE | 2025-03-29 11:02 | PC.NURSE ---
[facility] has started construction of its new state of the art ER which will open Spring 2026. With this, we anticipate parking may be a challenge for some our surgical patients and families. Parking spaces are limited but are available for all Surgical, obstetrics, and ER patients sharing this lot. If you arrive and find you are having a hard time finding a parking space, please note that we understand the challenges, please drive around the hospital and park near Hospital Entrance 1. When you enter this entrance, you can ask a volunteer to direct or take you back to the surgical waiting area to check in. We appreciate everyone?s understanding of these expected challenges while we build for your future. Report to the Outpatient Waiting Room, entrance under the green pavilion located off [address], at time _0730_ on date _[id number]_. Planned Procedure Time: _0930_.? Time changes happen often and if your time is changed the preop area will call you the afternoon before. - You and your visitor will be asked to self-screen and do not enter if you have any COVID symptoms. Please call surgeon if you need to reschedule. - A mask is optional within the hospital at this time. Patients may have clear liquids (water, carbonated beverages, clear teas, apple juice) until 3 hours prior to surgery with a maximum of 20 ounces. - No food from midnight until time of surgery and no smoking, or chewing tobacco (or any form of nicotine). No chewing gum, candy or mints. Take only the following medications with a SIP of water on the morning of surgery: __None____ DO NOT STOP ANY OF YOUR OTHER PRESCRIPTION MEDICATIONS PRIOR TO SURGERY EXCEPT THE FOLLOWING Hold all vitamins and supplements for 3 days per anesthesiologist. Medications to discontinue per physician Date to take last dose Please no make-up, nail monegasque, hairspray, perfume, deodorant, or body powder the day of surgery.? No jewelry (including any body piercings) or valuables the day of surgery, leave them at home.? Please take a shower or bath the night before, or the morning of, surgery with an antibacterial soap.? Wear comfortable, loose fitting clothing.? - Jewelry must be removed prior to entering the operating room.? Rings and piercings that are not removed may be cut off. - The hospital will not accept responsibility for valuables.? - Please leave all valuables, including medications, at home the day of surgery. If you are going home after surgery, a licensed rolloff driver must drive you home.? - NO public transportation without another adult if you receive anesthesia. - We recommend that an adult stay with you for 24 hours following discharge. - We also recommend that you do not drive, make important decision, drink alcoholic beverages, or take any drugs that were not prescribed by your health care provider for at least 24 hours after your discharge time. Follow any additional instructions given to you from your surgeon. Telephone instructions given to __Clair___and asked if any additional questions and then verbalized understanding. Patient advised to call surgeon office or pre surgery nurse liaison [phone] if any additional questions.
--- OUTSIDE RECORDS SUMMARY | 2025-04-06 02:48 | XMS_ITS | Encounter Summary ---
Author Organization [facility] Address [address] [place] [address] Care Team Providers Care Septic Tank Setter Name Role Phone Unavailable Primary Care Provider Unavailabl e Encounter Details Date Type Department Care Team (Latest Contact Info) Description 06/09/2023 [facility] [place] Social History Tobacco Use Types Packs/Day Years Used Date Smoking Tobacco: Never Assessed Comments Unknown Sex and Gender Information Value Date Recorded Sex Assigned at Not on file Legal Sex Female 10:30 AM [facility] Gender Identity Not on file Sexual Orientation Not on file documented as of this encounter Plan of Treatment Not on file documented as of this encounter Visit Diagnoses Not on filedocumented in this encounter
--- OUTSIDE RECORDS SUMMARY | 2025-04-06 02:48 | XMS_ITS | Encounter Summary ---
Author Organization [facility] Address [address] [place] [address] Care Team Providers Care Manager Non Profit Name Role Phone Unavailable Primary Care Provider Unavailabl e Encounter Details Date Type Department Care Team (Latest Contact Info) Description 06/04/2021 [facility] [place] Social History Tobacco Use Types Packs/Day Years Used Date Smoking Tobacco: Never Assessed Comments Unknown Sex and Gender Information Value Date Recorded Sex Assigned at Not on file Legal Sex Female 10:30 AM [facility] Gender Identity Not on file Sexual Orientation Not on file documented as of this encounter Plan of Treatment Not on file documented as of this encounter Visit Diagnoses Not on filedocumented in this encounter
--- OUTSIDE RECORDS SUMMARY | 2025-04-06 02:48 | XMS_ITS | Clinical Summary ---
Author Organization [facility] Address [address] [place] [address] Care Team Providers Care Special Collections Librarian Name Role Phone Unavailable Primary Care Provider Unavailabl e Immunizations Immunization Administration Dates Next Due Covid-19, Mrna, Lnp-s, PF, 5 0 mcg/0.25 mL dose (Moderna) 06/06/2021 Social History Tobacco Use Types Packs/Day Years Used Date Smoking Tobacco: Never Assessed Comments Unknown Sex and Gender Information Value Date Recorded Sex Assigned at Not on file Legal Sex Female 1:27 PM [facility] JAVA DEVELOPER Gender Identity Not on file Sexual Orientation Not on file Plan of Treatment Health Maintenance Due Date Last Done Comments Hepatitis C Virus (HCV) Screening 1977 TdaP Immunization 1977 Hepatitis B Immunization (1 of 3 - 19+ 3-dose series) 1996 Pap Smear 1998 Cervical Cancer Screening (CCS) 2007 HPV/Cotest 2007 Cologuard 2022 Colonoscopy 2022 Colorectal Cancer Screening 2022 Immunochemical Fecal Occult Blood 2022 Influenza Immunization (#1) 2025 04/01/2019 SARS-COV-2 Immunization ( season) 2025 06/06/2021, 10/08/2020, 09/16/2020 Respiratory Syncytial Virus (RSV) Immunization (Adult) (1 [...]
--- OUTSIDE RECORDS SUMMARY | 2025-04-06 02:48 | XMS_ITS | Clinical Summary ---
Author Organization [facility] Address [address] [place] [address] Care Team Providers Care Home Restoration Service Supervisor Name Role Phone Dilcia Montoya MD Primary Care Provider [phone] Social History Tobacco Use Types Packs/Day Years [...] Screening 2017 COVID-19 Vaccine (2023-2 5 season) 2025 Meningococcal B Vaccine Aged Out No l [...] age to complete this topic Care Teams Home Restoration Service Supervisor Relationship Specialty Start Date End Date Dilcia Montoya MD [address] [place] [address] [facility] - General 05/10/11
--- OUTSIDE RECORDS SUMMARY | 2025-04-06 02:48 | XMS_ITS | Encounter Summary ---
Author Organization [facility] Address [address] [place] [address] Care Team Providers Care Test Puller Name Role Phone Unavailable Primary Care Provider Unavailabl e Encounter Details Date Type Department Care Team (Latest Contact Info) Description 07/30/2022 [facility] [place] Social History Tobacco Use Types Packs/Day Years Used Date Smoking Tobacco: Never Assessed Comments Unknown Sex and Gender Information Value Date Recorded Sex Assigned at Not on file Legal Sex Female 10:30 AM [facility] Gender Identity Not on file Sexual Orientation Not on file documented as of this encounter Plan of Treatment Not on file documented as of this encounter Visit Diagnoses Not on filedocumented in this encounter
--- OUTSIDE RECORDS SUMMARY | 2025-04-06 02:48 | XMS_ITS | Encounter Summary ---
Author Organization [facility] Address [address] [place] [address] Care Team Providers Care Electric Detector Operator Name Role Phone Unavailable Primary Care Provider Unavailabl e Encounter Details Date Type Department Care Team (Latest Contact Info) Description 05/26/2021 [facility] [place] Social History Tobacco Use Types Packs/Day Years Used Date Smoking Tobacco: Never Assessed Comments Unknown Sex and Gender Information Value Date Recorded Sex Assigned at Not on file Legal Sex Female 10:30 AM [facility] Gender Identity Not on file Sexual Orientation Not on file documented as of this encounter Plan of Treatment Not on file documented as of this encounter Visit Diagnoses Not on filedocumented in this encounter
--- OUTSIDE RECORDS SUMMARY | 2025-04-06 02:48 | XMS_ITS | Encounter Summary ---
Author Organization [facility] Address [address] [place] [address] Care Team Providers Care Indirect Fire Infantryman Name Role Phone Unavailable Primary Care Provider Unavailabl e Encounter Details Date Type Department Care Team (Latest Contact Info) Description 08/06/2023 [facility] [place] Social History Tobacco Use Types Packs/Day Years Used Date Smoking Tobacco: Never Assessed Comments Unknown Sex and Gender Information Value Date Recorded Sex Assigned at Not on file Legal Sex Female 10:30 AM [facility] Gender Identity Not on file Sexual Orientation Not on file documented as of this encounter Plan of Treatment Not on file documented as of this encounter Visit Diagnoses Not on filedocumented in this encounter
--- OUTSIDE RECORDS SUMMARY | 2025-04-06 02:48 | XMS_ITS | Clinical Summary ---
Author Organization [facility] Address [address] [place] [address] Care Team Providers Care Associate Pastor Name Role Phone Unavailable Primary Care Provider Unavailabl e Social History Tobacco Use Types Packs/Day Years Used Date Smoking Tobacco: Never Assessed Comments Unknown Sex and Gender Information Value Date Recorded Sex Assigned at Not on file Legal Sex Female 10:30 AM [facility] Gender Identity Not on file Sexual Orientation Not on file Plan of Treatment Not on file Insurance [facility]
--- OUTSIDE RECORDS SUMMARY | 2025-04-06 02:48 | XMS_ITS | Encounter Summary ---
Author Organization [facility] Address [address] [place] [address] Care Team Providers Care Mangle Press Catcher Name Role Phone Unavailable Primary Care Provider Unavailabl e Encounter Details Date Type Department Care Team (Latest Contact Info) Description 06/07/2023 [facility] [place] Social History Tobacco Use Types Packs/Day Years Used Date Smoking Tobacco: Never Assessed Comments Unknown Sex and Gender Information Value Date Recorded Sex Assigned at Not on file Legal Sex Female 10:30 AM [facility] Gender Identity Not on file Sexual Orientation Not on file documented as of this encounter Plan of Treatment Not on file documented as of this encounter Visit Diagnoses Not on filedocumented in this encounter
--- OUTSIDE RECORDS SUMMARY | 2025-04-06 02:48 | XMS_ITS | Encounter Summary ---
Author Organization [facility] Address [address] [place] [address] Care Team Providers Care Hse Specialist Name Role Phone Unavailable Primary Care Provider Unavailabl e Encounter Details Date Type Department Care Team (Latest Contact Info) Description 09/04/2022 [facility] [place] Social History Tobacco Use Types Packs/Day Years Used Date Smoking Tobacco: Never Assessed Comments Unknown Sex and Gender Information Value Date Recorded Sex Assigned at Not on file Legal Sex Female 10:30 AM [facility] Gender Identity Not on file Sexual Orientation Not on file documented as of this encounter Plan of Treatment Not on file documented as of this encounter Visit Diagnoses Not on filedocumented in this encounter
--- OUTSIDE RECORDS SUMMARY | 2025-04-06 02:48 | XMS_ITS | Clinical Summary ---
Author Organization [facility] Medical [facility] Address [address] [facility] [place] [address] Care Team Providers Care Side Laster Tack Name Role Phone Eulalia Kuo MD Primary Care Provider [phone] Allergies Active Allergy Reactions Criticality Noted Date Comments Sumatriptan Anaphylaxis High 05/18/2019 Medications pancrelipase (CREON) 36,000 units of lipase capsuleIndications :exocrine pancreatic insufficiency Take tabs 2 with meals, 1 tab with snacks 270 capsule 3 0 Active Active Problems Problem Noted Date Diagnosed Date Acute pancreatitis 05/20/2019 Pancreas divisum of [place] pancreas 05/20/2019 Surgical History Surgery Date Site/Laterality [...] on file Legal Sex Female 10:11 PM 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
--- OUTSIDE RECORDS SUMMARY | 2025-04-06 02:48 | XMS_ITS | Clinical Summary ---
Author Organization [facility] Address [address] [place] [address] [place] [address] Care Team Providers Care Sample Clerk Name Role Phone Unavailable Primary Care Provider [...]
--- OUTSIDE RECORDS SUMMARY | 2025-04-06 02:48 | XMS_ITS | Encounter Summary ---
Author Organization [facility] Address [address] [place] [address] Care Team Providers Care Cocoa Bean Roaster Helper Name Role Phone Unavailable Primary Care Provider Unavailabl e Encounter Details Date Type Department Care Team (Latest Contact Info) Description 09/22/2021 [facility] [place] [place] Social History Tobacco Use Types Packs/Day Years Used Date Smoking Tobacco: Never Assessed Comments Unknown Sex and Gender Information Value Date Recorded Sex Assigned at Not on file Legal Sex Female 10:30 AM [facility] Gender Identity Not on file Sexual Orientation Not on file documented as of this encounter Plan of Treatment Not on file documented as of this encounter Visit Diagnoses Not on filedocumented in this encounter
--- OUTSIDE RECORDS SUMMARY | 2025-04-06 02:48 | XMS_ITS | Encounter Summary ---
Author Organization [facility] Address [address] [place] [address] Care Team Providers Care Bobbin Cleaning Machine Operator Name Role Phone Unavailable Primary Care Provider Unavailabl e Encounter Details Date Type Department Care Team (Latest Contact Info) Description 07/07/2021 [facility] [place] Social History Tobacco Use Types Packs/Day Years Used Date Smoking Tobacco: Never Assessed Comments Unknown Sex and Gender Information Value Date Recorded Sex Assigned at Not on file Legal Sex Female 10:30 AM [facility] Gender Identity Not on file Sexual Orientation Not on file documented as of this encounter Plan of Treatment Not on file documented as of this encounter Visit Diagnoses Not on filedocumented in this encounter
--- OUTSIDE RECORDS SUMMARY | 2025-04-06 02:48 | XMS_ITS | Encounter Summary ---
Author Organization [facility] Address [address] [place] [address] Care Team Providers Care Middle School French Teacher Name Role Phone Unavailable Primary Care Provider Unavailabl e Encounter Details Date Type Department Care Team (Latest Contact Info) Description 04/12/2024 [facility] [place] Social History Tobacco Use Types Packs/Day Years Used Date Smoking Tobacco: Never Assessed Comments Unknown Sex and Gender Information Value Date Recorded Sex Assigned at Not on file Legal Sex Female 10:30 AM [facility] Gender Identity Not on file Sexual Orientation Not on file documented as of this encounter Plan of Treatment Not on file documented as of this encounter Visit Diagnoses Not on filedocumented in this encounter
[2025-04-06 07:50] VITALS: BP 141/87; PULSE 96; RESP 14; TEMP 36.4; O2SAT 98; BMI 38.2
[2025-04-06] MEDS: LACTATED RINGERS 1,000 ML 30 ML IV CONT (08:15)
[2025-04-06] MEDS: ACETAMINOPHEN 500 MG TABLET 1000 MG PO (08:20)
--- NOTE | 2025-04-06 08:25 | P.HP_ITS ---
H&P: HPI History of Present Illness Date/Time: 04/06/25 08:25 Chief Complaint: abnormal uterine bleeding Narrative: patient is a 49-y/o with history of abnormal bleeding. And menorrhagia. She had an endometrial biopsy which showed possible polyp. She was recommended for removal of the polyp. She was also given the option of endometrial ablation. She was given option of hormonal treatment if the removal of the polyp does not stop the menorrhagia. Which it may or may not. She did opt to get the endometrial ablation at the same time. She has been informed of risks benefits of hysteroscopy and removal of polyp and endometrial ablation and wishes to proceed with this procedure. She is aware it does not prevent . She is not on any contraceptive. Review of Systems Review of Systems: All systems reviewed & are unremarkable except as noted in HPI and below Cardiovascular: Cardiovascular: Reports no additional cardiovascular complaints, Denies chest pain and Denies dyspnea Respiratory: Respiratory: Reports no additional respiratory complaints and Denies dyspnea Gastrointestinal: Gastrointestinal: Reports abdominal pain, Denies change in bowel habits, Denies diarrhea, Denies nausea and Denies vomiting Genitourinary: Genitourinary: Reports pelvic pain Musculoskeletal: Musculoskeletal: Reports back pain Integumentary/Breasts: Skin/Breast: Reports system reviewed and no additional complaints, except as docu Neurologic: Reports system reviewed and no additional complaints, except as documented PMFSH Past Medical History Medical History Abdominal pain Pancreatitis Migraine Surgical History Surgical History History of pancreatic surgery Family History Family History Father COPD (chronic obstructive pulmonary disease) Asthma Cerebrovascular accident Diabetes mellitus Hypertension Malignant neoplasm of prostate Mother MVP (mitral valve prolapse) Social History Social History Smoking status: Never smoker Second hand tobacco smoke exposure: No Alcohol intake: never Alcohol use details: does not use any more Substance use: never Substance use type: does not use Do You Feel Safe in your Home?: Yes Lack of Transportation: No Lack of Food: Never True Current Housing: I Have Housing Concerned About Future Housing: No Difficulty Paying Gas/Electric Bills: No Difficulty Paying for Meds: No Currently Unemployed: No Education: High School Diploma/GED Difficulty w/ Childcare or Family Care: No Living arrangements: with family Gender identity (if verbalized by the patient): Female Spiritual care concerns: No Meds Home Medications and Allergies Home Medications ?Medication ?Instructions ?Recorded ?Confirmed ?Type progesterone micronized 200 mg 200 mg PO QHS 30 days # 30 caps 03/28/25 03/29/25 Rx capsule (Prometrium) Allergies Allergy/AdvReac Type Severity Reaction Status Date / Time sumatriptan Allergy Mild Agitated Verified 04/06/25 08:22 Exam Const: Orientation/consciousness: oriented to person and oriented to place HENMT: Head: normal to inspection Eyes: General: appearance normal, both eyes and all related structures Resp: Effort & Inspection: normal respiratory effort Auscultation: clear to auscultation bilaterally Cardio: Rate: regular rate Rhythm: regular rhythm GI: Inspection: normal to inspection GI Palp: No Rebound tenderness present Neuro: General: oriented to person and oriented to place Cognition (Neuro): normal cognition Extrem: General: normal to inspection Psych: Appearance: grossly normal and well kempt Assessment and Plan Assessment and plan (1) Menorrhagia: Code(s): N92.0 - Excessive and frequent menstruation with regular cycle Status: Acute Assessment and Plan: will proceed with hysteroscopy with removal of endometrial lesion possible curettage and will proceed with endometrial ablation. (2) Endometrial polyp: Code(s): N84.0 - Polyp of corpus uteri Status: Acute
[2025-04-06 08:37] LABS: BEDSIDEPREGUCG Negative (Negative)
[2025-04-06] MEDS: SCOPOLAMINE 1 MG PATCH 1 PATCH TRANSDERM (08:42)
--- NOTE | 2025-04-06 09:29 | WPDHPUPDATE1 ---
History and Physical Update Update Date/Time: 04/06/25 09:29 History and Physical has been reviewed, including an updated exam of the patient. There are NO changes in the patient's condition. Risks, benefits, and alternatives have been discussed and questions answered. Patient agrees to proceed with procedure.
--- NOTE | 2025-04-06 09:43 | WPDANESEPPF ---
Anes - Initial Pre Proc Eval Procedure: Operation Date: 04/06/25 09:30 Proposed Procedures p Hysteroscopy Dilation and Curettage with Removal of any Endometrial Lesions if Needed, Joann Endometrial Ablation - Kalia aSlas MD Date/Time: 04/06/25 09:43 Surgeon: Kalia Salas MD Pre Op Diagnosis: Abnormal Uterine Bleeding Patient Data Age: 49 Gender: F Height: 1.68 m Weight: 107.6 kg Last Vital Signs Temp 36.4 C L 04/06/25 07:50 Pulse 96 04/06/25 07:50 Resp 14 04/06/25 07:50 BP 141/87 H 04/06/25 07:50 Pulse Ox 98 04/06/25 07:50 O2 Del Method Room Air 04/06/25 07:50 Allergies Allergy/AdvReac Type Severity Reaction Status Date / Time sumatriptan Allergy Mild Agitated Verified 04/06/25 08:22 Home Medications ?Medication ?Instructions ?Recorded ?Confirmed ?Type progesterone micronized 200 mg 200 mg PO QHS 30 days #30 caps 03/28/25 03/29/25 Rx capsule (Prometrium) Laboratory Tests 04/06/25 07:50 POC Urine HCG, Qual Negative (Negative) Patient hx anesthesia problems: none Family hx anesthesia problems: none Results Review: All pre-operative results and documents have been reviewed as part of the pre-operative evaluation. [facility] Past Medical History Medical History Abdominal pain Pancreatitis Migraine Surgical History Surgical History History of pancreatic surgery Family History Family History Father COPD (chronic obstructive pulmonary disease) Asthma Cerebrovascular accident Diabetes mellitus Hypertension Malignant neoplasm of prostate Mother MVP (mitral valve prolapse) Social History Social History Smoking status: Never smoker Second hand tobacco smoke exposure: No Alcohol intake: never Alcohol use details: does not use any more Substance use: never Substance use type: does not use Do You Feel Safe in your Home?: Yes Lack of Transportation: No Lack of Food: Never True Current Housing: I Have Housing Concerned About Future Housing: No Difficulty Paying Gas/Electric Bills: No Difficulty Paying for Meds: No Currently Unemployed: No Education: High School Diploma/GED Difficulty w/ Childcare or Family Care: No Living arrangements: with family Gender identity (if verbalized by the patient): Female Spiritual care concerns: No Anes - Eval Final PreProcedure Day of Procedure 04/06/25 09:43 Patient weight: obese Heart: regular rate and rhythm Lungs: clear to auscultation Airway: Mallampati scale class III Neurological: alert and oriented Last oral intake: >/= 8 hours ASA classification: III Emergent: no Anesthetic plan: proceed Anesthesia type and monitoring: general GIVS and standard monitoring Results Review: All pre-operative results and documents have been reviewed as part of the pre-operative evaluation. Informed Consent: The patient's anesthetic plan and its attendant risks and benefits were discussed with the patient/family/POA. Questions were solicited and answers provided to the satisfaction of the patient/family/POA.
[2025-04-06] MEDS: ceFAZolin 2 GM in SODIUM CHLORIDE 0.9% IV 50 ML 100 ML IVPB (09:49)
[2025-04-06] MEDS: LIDOCAINE 1% LOCAL INJ 10 ML VIAL INFILTRATE (09:59)
--- NOTE | 2025-04-06 10:09 | S_PTH ---
PATIENT: Clair Moreno LOC: [facility] U#:[id number] AGE/SX: 49/F ROOM: RE04/06/[address]: Kalia Salas MD : 1975 BED: DIS: 04/06/2025 SPEC #: [id number] RECD: 04/06/25 11:48 STATUS: JAGUAR REQ #: [id number] DUNCAN: 04/06/25 10:[address]: Kalia Salas DEPT: [facility] RECD BY: Pooja [place] ENTERED: 04/06/25 11:48 SP TYPE: Surgical OTHR DR: Eulalia KuoMD Tissues: A - Endometrial Curettings Procedures: Hematoxylin and Eosin Stain Gross and Microscopic Level 4
[2025-04-06] MEDS: KETOROLAC 30 MG/ML VIAL (*BKC) IV PUSH (10:14)
[2025-04-06 10:24] VITALS: BP 135/92; PULSE 90; RESP 14; O2SAT 98
[2025-04-06] MEDS: oxyCODONE HCL (*CRX) 5 MG TAB IR PO (10:47)
[2025-04-06 10:55] VITALS: BP 143/92; PULSE 88; RESP 16
--- NOTE | 2025-04-06 11:06 | W.PM.PROC2 ---
Procedure Note - Detailed Date of Procedure 04/06/25 Pre-op Diagnosis Menorrhagia, abnormal bleeding, possible endometrial polyp Post-op Diagnosis Other ( menorrhagia) Procedure Performed hysteroscopy with dilation and curettage and endometrial ablation Surgeon Kalia Salas MD Anesthesia MAC and Local Indications menorrhagia, endometrial biopsy with possible polyp patient requested ablation. Findings Uterine cavity normal no polyp seen proliferative tissue. Description of Procedure After informed consent was obtained patient was taken to the operating room and adequate IV sedation was administered. Attention was turned to the vagina. Speculum was inserted. Single-tooth tenaculum placed on the anterior lip of the cervix. The uterus was sounded to 9 cm. The cervix was dilated to an 8 Romero dilator. The hysteroscope was inserted into the cavity. The findings were a normal uterine cavity. The hysteroscope was removed. The Joann ablation instrument was inserted into the cavity. Cavity assessment was performed and confirmed intact. The ablation was enabled. After 120 seconds the Joann stopped. The ablation instrument was removed. The hysteroscope was inserted and there was noted to be good eschar with the cavity. The hysteroscope was removed the single-tooth tenaculum was removed hemostasis was noted at the tenaculum site. Sponge count correct. The patient taken to recovery in stable condition. Estimated Blood Loss 5 Drains No Packing No Complications No immediate complications Condition Stable Disposition Same day [facility] Billing Surgery - Charge Forward: Surgery Billing
[2025-04-06 11:25] VITALS: BP 144/92; PULSE 81; RESP 16
[2025-04-06 11:45] VITALS: BP 125/77; PULSE 84; RESP 15
== END 2025-04-06 12:00 | disposition home or self-care (01) ==
PROVIDERS: PCP Family Medicine; Visit Provider Obstetrics & Gynecology
PROC: 0U5B8ZZ Destruction of Endometrium, Via Natural or Artificial Opening Endoscopic (ICD-10-PCS; CPT 58563; principal; 2025-04-06 09:30)
DX: N92.0 Excessive and frequent menstruation with regular cycle (principal); E66.9 Obesity, unspecified; Z68.38 Body mass index [BMI] 38.0-38.9, adult
CPT/HCPCS: 58563; 88305; J0690; A9270; J1100; J1885; J2003; J2250; J2405; J2704; J3010; J7120